=== PATIENT | female | born 1955 | race Caucasian/White ===

== ENCOUNTER → 2017-12-17 08:37 | Outpatient (CLI) | payer BC, SELFPAY ==
[2017-12-17 09:20] LABS: Add Manual Diff / Slide Review NO; Basophils Percent Auto 1.2 % (0-2); Hematocrit 38.5 % (36-46); Hemoglobin 13.2 g/dL (12.0-16.0); Lymphocytes Percent Auto 37.6 % (25-40); Mean Corpuscular HGB Conc 34.3 % (30-36); Mean Corpuscular Hemoglobin 29.9 PG (26-34); Mean Corpuscular Volume 87.3 fL (80-100); Monocytes Percent Auto 7.2 % (3-14); Neutrophils Absolute Auto 2500 /uL (3000-5900); Platelet Count 263 X10^3/uL (150-400); Red Blood Cell Count 4.41 X10^6/uL (4.0-5.2); Red Cell Distribution Width 13.5 % (11.6-14.8); White Blood Cell Count 4.8 X10^3/uL (4.5-11.0)
[2017-12-17 09:48] LABS: Alanine Aminotransferase 34 IU/L (9-52); Albumin 4.3 g/dL (3.5-5.0); Albumin Globulin Ratio 1.5 (1.0-2.8); Alkaline Phosphatase 68 U/L (38-126); Aspartate Aminotransferase 26 IU/L (14-36); Bilirubin Total 0.6 mg/dL (0.2-1.3); Blood Urea Nitrogen 16 mg/dL (7-17); Calcium 9.2 mg/dL (8.4-10.2); Carbon Dioxide 27 mmol/L (22-32); Chloride 102 mmol/L (98-107); Cholesterol 179 mg/dL (140-199); Estimated Glomerular Filt Rate > 60.0 mL/min (>60); Globulin 2.9 g/dL (1.7-4.1); Glucose 87 mg/dL (80-110); HDL Cholesterol 53 mg/dL (40-60); HEMOLYSIS 26 (0-50); LDL Cholesterol Calculated 102 mg/dL (<100); Potassium 4.3 mmol/L (3.4-5.1); Sodium 140 mmol/L (137-145); Total Protein 7.2 g/dL (6.3-8.2); Triglycerides 118 mg/dL (35-150)
[2017-12-17 10:11] LABS: Hemoglobin A1C% w Est Avg Glu 5.4 % (4.0-6.0)
[2017-12-17 10:16] LABS: TSH w/ Reflex to FT4 2.04 uIU/mL (0.47-4.68)
== END ==
PROVIDERS: Family Provider Family Medicine; PCP Family Medicine; Visit Provider Family Medicine
DX: E66.9 Obesity, unspecified (principal); E03.9 Hypothyroidism, unspecified; E78.5 Hyperlipidemia, unspecified
CPT/HCPCS: 36415; 80053; 80061; 83036; 84443; 85025

== ENCOUNTER → 2020-10-18 10:20 | Outpatient (CLI) | payer OTHER, SELFPAY ==
[2020-10-18 10:57] LABS: Hematocrit 41.1 % (36-46); Hemoglobin 13.8 g/dL (12.0-16.0); Mean Corpuscular HGB Conc 33.5 % (30-36); Mean Corpuscular Hemoglobin 28.8 PG (26-34); Mean Corpuscular Volume 86.2 fL (80-100); Platelet Count 273 X10^3/uL (150-400); Red Blood Cell Count 4.77 X10^6/uL (4.0-5.2); Red Cell Distribution Width 13.5 % (11.6-14.8); White Blood Cell Count 5.1 X10^3/uL (4.5-11.0)
[2020-10-18 11:14] LABS: Alanine Aminotransferase 24 IU/L (<35); Albumin 4.2 g/dL (3.5-5.0); Albumin Globulin Ratio 1.5 (1.0-2.8); Alkaline Phosphatase 86 U/L (38-126); Aspartate Aminotransferase 30 IU/L (14-36); BUN Creatinine Ratio 8.6 (6-22); Bilirubin Total 0.4 mg/dL (0.2-1.3); Blood Urea Nitrogen 8 mg/dL (7-17); Calcium 9.5 mg/dL (8.4-10.2); Carbon Dioxide 28 mmol/L (22-32); Chloride 106 mmol/L (98-107); Cholesterol 192 mg/dL (140-199); Estimated Glomerular Filt Rate > 60.0 mL/min (>60); Globulin 2.8 g/dL (1.7-4.1); Glucose 96 mg/dL (80-110); HDL Cholesterol 63 mg/dL (40-60); HEMOLYSIS < 15 (0-50); LDL Cholesterol Calculated 107 mg/dL (<100); Potassium 4.1 mmol/L (3.4-5.1); Sodium 140 mmol/L (137-145); Triglycerides 110 mg/dL (35-150)
[2020-10-18 11:22] LABS: NT-proBNP (BNP-Adult 18+) 91 pg/mL (<125)
[2020-10-18 11:40] LABS: TSH w/ Reflex to FT4 1.58 uIU/mL (0.47-4.68)
== END ==
PROVIDERS: PCP Registered Nurse Diabetes Educator; Referring Provider Registered Nurse Diabetes Educator; Visit Provider Registered Nurse Diabetes Educator
DX: E78.5 Hyperlipidemia, unspecified (principal); R06.00 Dyspnea, unspecified; I10 Essential (primary) hypertension; R06.83 Snoring
CPT/HCPCS: 36415; 80053; 80061; 83880; 84443; 85027

== ENCOUNTER → 2020-11-08 08:45 | Outpatient (CLI) | payer OTHER, MEDICARE, SELFPAY ==
--- NOTE | 2020-11-08 08:47 | DI.RAD.S_ITS ---
PROCEDURE: XR CHEST 2V INDICATIONS: dyspnea on exertion TECHNIQUE: 2 views of the chest were acquired. COMPARISON: [facility], CHEST 2 VIEW, 12/11/2009, 11:46. [facility], CHEST 2 VIEW, 05/03/2015, 10:14. FINDINGS: Surgical changes and devices: None. Lungs and pleura: An incomplete inspiratory result is noted, causing a crowded appearance to the lung markings. No focal infiltrates are seen. No pneumothorax or significant pleural effusions are seen. Mild generalized interstitial prominence can be seen. Mediastinum: Mediastinal contours are normal. Heart size is normal. Bones and chest wall: No suspicious bony abnormalities. S shaped scoliosis is seen. Age-appropriate bony degenerative changes are seen. Soft tissues appear unremarkable. IMPRESSION: Low lung volumes with generalized interstitial prominence. Differential diagnosis includes artifact from the incomplete inspiratory result and mild pulmonary edema. S shaped scoliosis noted. Dictated by: Holden Daniel M.D. on 11/08/2020 at 11:03 Approved by: Holden Daniel M.D. on 11/08/2020 at 11:04
== END ==
PROVIDERS: PCP Registered Nurse Diabetes Educator; Referring Provider Registered Nurse Diabetes Educator; Visit Provider Registered Nurse Diabetes Educator
DX: E78.5 Hyperlipidemia, unspecified (principal); R06.00 Dyspnea, unspecified; I10 Essential (primary) hypertension; R06.83 Snoring; Z12.11 Encounter for screening for malignant neoplasm of colon
CPT/HCPCS: 71046; 82274

== ENCOUNTER → 2020-11-10 09:29 | Outpatient (CLI) | payer OTHER, MEDICARE, SELFPAY ==
[2020-11-10 11:05] LABS: COVID19 -Nasal RAPID Negative (Negative)
== END ==
PROVIDERS: PCP Registered Nurse Diabetes Educator; Visit Provider Student in an Organized Health Care Education/Training Program
DX: Z01.812 Encounter for preprocedural laboratory examination (principal); Z20.822 Contact with and (suspected) exposure to COVID-19
CPT/HCPCS: 87635

== ENCOUNTER → 2020-11-11 07:54 | Outpatient (CLI) | payer OTHER, MEDICARE, SELFPAY ==
--- NOTE | 2020-11-11 08:58 | PM.TREADMILL ---
Cardiac Stress Test Report Referral & Results Date Patient Seen: 11/11/20 Time Patient Seen: 08:45 Requesting provider: Bridger Johnson Indication: Dyspnea on exertion Rest ECG: NSR Procedure Note: Today following both written and verbal informed consent the patient was exercised according to a standard Gomez protocol patient went for a total of 4 minutes 16 seconds achieving a maximum heart rate of 156 maximum systolic blood pressure of 184. This is approximately 7.0 METs. Exercise was terminated at this point because of fatigue. Patient was also given Cardiolite through a previously started Hep-Lock IV by the coil repair technician approximately 1 minute prior to the cessation of exercise. Normal hemodynamic response to exercise. Presenting symptom of shortness of breath reproduced within the 1st [address] Mild [address] depressions in inferior leads that resolved rapidly with rest. Markedly decreased exercise capacity (FA I +35% on active scale). No change in rhythm. Impression: Intermediate probability for ischemia. Perfusion imaging pending. Please note: Actual ECG tracings can be found in the PACS system.
--- NOTE | 2020-11-12 17:37 | DI.NM.S_ITS ---
DATE OF SERVICE: 11/11/2020 PROCEDURE: Exercise perfusion study. INDICATIONS: Dyspnea on exertion, underlying hypertension, hyperlipidemia, hypothyroidism. RADIOPHARMACEUTICAL: 26.9 millicurie technetium-99m Myoview IV was injected at stress and 26.5 millicurie technetium-99m Myoview IV was injected at rest. CARDIAC STRESS: The patient underwent exercise perfusion study under the supervision of an attending staff. The patient walked on Gomez protocol for 4 minutes and 16 seconds, achieved a peak heart rate of 156, which was 101 percent of target heart rate and peak blood pressure of 184/100 mmHg. Resting blood pressure 136/80 mmHg. The patient has significant shortness of breath and fatigue during exercise. Achieved 7 METs of workload. Functional aerobic impairment positive 35 percent. Baseline EKG revealed sinus rhythm with asymmetrical T-wave inversion and some ST flattening in inferior leads and lead V3 to V6. During stress, there were no new convincing ischemic changes or significant arrhythmias seen. RAW DATA: The breast shadow was seen. GATED STUDY: Stress LV ejection fraction 77 percent without any obvious wall motion abnormalities. Resting end-diastolic volume 79 mL. TID ratio 0.85, which is within normal limits. Lung/heart ratio 0.34, which is within normal limits. MYOCARDIAL PERFUSION: Stress supine and resting supine images, as well as stress prone images were compared to each other. Resting supine images revealed small size, mildly decreased perfusion of mid to distal anterior wall. However, the stress supine and stress prone images revealed normal myocardial perfusion. CONCLUSION: I will call this study a normal myocardial perfusion study, as stress supine and stress prone images revealed normal myocardial perfusion. Poor functional tolerance. SARAH positive 35 percent. The patient has significant shortness of breath during exercise. Left ventricular function is preserved. No transient ischemic dilatation. No convincing ischemic changes during stress or significant arrhythmias. Consider 2D echo to make sure there is no significant diastolic dysfunction, as well as pulmonary workup to rule out pulmonary etiology of shortness of breath. There was enhanced chronotropic response. Leydi Be - PAZ/lucero/ramu doc#: [id number]/job#: [id number] dd: 11/12/2020 16:42:00 dt: 11/12/2020 17:11:00 DICTATING MD/COPIES TO: Raymond Martinez MD COPIES MNE: YANICK;
== END ==
PROVIDERS: PCP Registered Nurse Diabetes Educator; Referring Provider Registered Nurse Diabetes Educator; Visit Provider Registered Nurse Diabetes Educator
DX: R06.00 Dyspnea, unspecified (principal); I10 Essential (primary) hypertension; E78.5 Hyperlipidemia, unspecified
CPT/HCPCS: 78452; 93016; 93017; 93018; A9502

== ENCOUNTER → 2020-11-15 09:28 | Outpatient (CLI) | payer OTHER, MEDICARE, SELFPAY ==
--- NOTE | 2020-11-15 09:30 | DI.RAD.S_ITS ---
PROCEDURE: XR CHEST 2V INDICATIONS: r/o mild pulmonary edema vs incomplete inspiratory result TECHNIQUE: 2 views of the chest were acquired. COMPARISON: [facility], JANELL, CHEST 2 VIEW, 05/03/2015, 10:14. [facility], JANELL, XR CHEST 2V, 11/08/2020, 8:45. FINDINGS: Surgical changes and devices: None. Lungs and pleura: Lungs are clear. No pleural effusions or pneumothorax. Mediastinum: Mediastinal contours are normal. Heart size is normal. Bones and chest wall: S shaped scoliosis of the thoracolumbar spine. No suspicious bony abnormalities. Soft tissues appear unremarkable. IMPRESSION: No acute cardiopulmonary disease process. Dictated by: Ariana Castillo MD, PhD on 11/15/2020 at 12:12 Approved by: Ariana Castillo MD, PhD on 11/15/2020 at 12:13
== END ==
PROVIDERS: PCP Registered Nurse Diabetes Educator; Referring Provider Registered Nurse Diabetes Educator; Visit Provider Registered Nurse Diabetes Educator
DX: M25.579 Pain in unspecified ankle and joints of unspecified foot (principal); R06.83 Snoring; R06.00 Dyspnea, unspecified; I10 Essential (primary) hypertension
CPT/HCPCS: 71046

== ENCOUNTER → 2021-01-30 17:05 | Outpatient (CLI) | payer MEDICARE, SELFPAY ==
--- NOTE | 2021-01-30 17:09 | DI.RAD.S_ITS ---
PROCEDURE: XR CHEST 2V INDICATIONS: Concern for pneumonia TECHNIQUE: 2 views of the chest were acquired. COMPARISON: [facility], CR, XR CHEST 2V, 11/15/2020, 9:30. FINDINGS: Surgical changes and devices: None. Lungs and pleura: Lungs are clear. No pleural effusions or pneumothorax. Mediastinum: Mediastinal contours are normal. Heart size is normal. Bones and chest wall: No suspicious bony abnormalities. Soft tissues appear unremarkable. IMPRESSION: No acute finding in the chest. Dictated by: Thanh Eaton M.D. on 01/30/2021 at 17:25 Approved by: Thanh Eaton M.D. on 01/30/2021 at 17:25
== END ==
PROVIDERS: PCP Registered Nurse Diabetes Educator; Referring Provider Physician Assistant; Visit Provider Physician Assistant
DX: R05 Cough (principal); Z20.822 Contact with and (suspected) exposure to COVID-19
CPT/HCPCS: 71046; 87635

== ENCOUNTER → 2021-01-30 17:56 | Outpatient (CLI) | payer MEDICARE, SELFPAY ==
[2021-01-30 18:21] LABS: COVID19 -Nasal RAPID Negative (Negative)
== END ==
PROVIDERS: PCP Registered Nurse Diabetes Educator; Visit Provider Physician Assistant
DX: Z20.822 Contact with and (suspected) exposure to COVID-19 (principal)
CPT/HCPCS: 87635

== ENCOUNTER → 2021-03-07 09:31 | Outpatient (CLI) | payer MEDICARE, SELFPAY ==
[2021-03-08 11:07] LABS: SARS CoV19 IgG Negative (Negative)
== END ==
PROVIDERS: PCP Registered Nurse Diabetes Educator; Referring Provider Registered Nurse Diabetes Educator; Visit Provider Registered Nurse Diabetes Educator
DX: Z20.822 Contact with and (suspected) exposure to COVID-19 (principal)
CPT/HCPCS: 36415; 86769

== ENCOUNTER → 2021-04-10 11:21 | Outpatient (CLI) | payer MEDICARE, SELFPAY ==
[2021-04-12 11:15] LABS: COVID19 Sendout Positive (Not Detect)
== END ==
PROVIDERS: PCP Registered Nurse Diabetes Educator; Visit Provider Nurse Practitioner
DX: U07.1 COVID-19 (principal); Z20.822 Contact with and (suspected) exposure to COVID-19
CPT/HCPCS: 87635

== ENCOUNTER 2021-04-13 15:14 | Observation (INO) | payer MEDICARE, SELFPAY ==
[2021-04-13] VITALS (10 sets, daily range): BP systolic 134–159; BP diastolic 69–91; PULSE 71–91; RESP 16–32; TEMP 36.3–36.6; O2SAT 88–96; BMI 34.9
--- NOTE | 2021-04-13 15:23 | DI.CT.S_ITS ---
PROCEDURE: CT HEAD/BRAIN WO CON INDICATIONS: stroke sx, word searching TECHNIQUE: Noncontrast 4.5 mm thick angled axial sections acquired from the foramen magnum to the vertex, with coronal and sagittal reformats. For radiation dose reduction, the following was used: automated exposure control, adjustment of mA and/or kV according to patient size. COMPARISON: [facility], , BRAIN WITHOUT CONTRAST, 01/23/2007, 6:58. FINDINGS: Image quality: Excellent. CSF spaces: Basal cisterns are patent. No extra-axial fluid collections. The ventricles are symmetric in size and shape. Brain: No intracranial bleeds or masses. There is cerebral volume loss for age, with resultant ventricular and sulcal prominence. There are periventricular and deep white matter chronic small vessel ischemic changes. There is intracranial internal carotid artery atherosclerosis. Skull and face: Calvarium and visualized facial bones appear intact, without suspicious lesions. Sinuses: Visualized sinuses and mastoids are clear. IMPRESSION: 1. No acute intracranial abnormalities. 2. Cerebral volume loss and chronic microvascular ischemic changes. Dictated by: Sonja Alexis M.D. on 04/13/2021 at 15:47 Approved by: Sonja Alexis M.D. on 04/13/2021 at 15:49
--- NOTE | 2021-04-13 15:27 | ED_ITS ---
HPI - Neuro Symptoms/Deficit General Chief Complaint: Neuro Symptoms/Deficit Stated Complaint: Possible stroke, Covid+ Time Seen by Provider: 04/13/21 15:20 History of Present Illness HPI Narrative: 65-year-old female nonsmoker with history of hypertension, hyperlipidemia, reported history of paroxysmal AFib not on anticoagulation and hypothyroidism is currently COVID positive and presents with a chief complaint of an episode of difficulty finding words 20 minutes prior to her arrival. Her symptoms had resolved prior to her coming in. She denies other trouble such as blurred vision dizziness, lightheadedness. She denies any history of recent injury. She has no runny nose, sore throat or cough. She has had no chest pain, palpitations or shortness of breath. She has taken directly to CT for evaluation given concern for stroke On Anticoagulants: No Related Data Home Medications Medication Instructions Recorded Confirmed multivitamin (Multiple Vitamins) 1 tab PO QDAY #0 03/18/17 01/30/21 melatonin 5 mg capsule mg PO 10/08/20 01/30/21 Previous Rx's Medication Instructions Recorded levothyroxine 25 mcg tablet 25 mcg PO QDAY #90 tab 11/05/20 lisinopril 10 mg tablet 10 mg PO QDAY #90 tab 11/05/20 meloxicam 7.5 mg tablet (Mobic) 7.5 mg PO BIDCC #180 tab 11/05/20 omeprazole 20 mg tablet,delayed 20 mg PO BID #180 tab 11/05/20 release pravastatin 20 mg tablet 20 mg PO HS #90 tab 11/05/20 venlafaxine 75 mg capsule,extended 75 mg PO DAILY #90 cap 11/05/20 release 24 hr azelastine 137 mcg (0.1 %) nasal 1 spray INTRANASAL BID #30 ml 01/30/21 spray aerosol benzonatate 100 mg capsule 100 mg PO BID-TID PRN #14 cap 01/30/21 Allergies Allergy/AdvReac Type Severity Reaction Status Date / Time codeine [CODEINE] Allergy Mild Verified 01/30/21 17:53 meperidine [MEPERIDINE] Allergy Mild Verified 01/30/21 17:53 morphine [MORPHINE] Allergy Mild Verified 01/30/21 17:53 simvastatin [SIMVASTATIN] Allergy Mild Verified 01/30/21 17:53 Review of Systems Review of Systems Narrative: GENERAL: Denies chills, fatigue, malaise, fever, sweats. HEENT: Denies sinus pain, ear pain, sore throat, difficulty swallowing, dizziness. RESPIRATORY: Denies dyspnea, cough, wheezing, hemoptysis, sputum. CARDIOVASCULAR: Denies chest pain, palpitations, orthopnea, edema, GASTROINTESTINAL: Denies nausea, vomiting, abdominal pain, diarrhea, constipation, melena. : Denies dysuria, frequency, incontinence, hematuria, urinary retention. MUSCULOSKELETAL: denies weakness, joint pain, or bony pain SKIN: Denies rash, skin lesions, or other NEUROLOGIC: See HPI PSYCHIATRIC: No concerning psychosocial issues. 12 point review of systems is negative except for those stated above Hematologic/Lymphatic On Anticoagulants: No Patient History Medical History Allergies Anxiety Carpal tunnel syndrome (~2014) Cervical spine disease Depression (~1972) Dyslipidemia Endometriosis (~1983) Foot pain (~1999) Fractures (~1966) GERD (gastroesophageal reflux disease) Hayfever Hiatal hernia History of heavy periods Hyperlipidemia Hypertension Hypothyroidism Mumps (~1959) Scoliosis (~1967) Shoulder pain (~1999) Wears glasses Surgical History Anesthesia History of spinal fusion (~1967) History of surgery on arm (~1965) History of tonsillectomy (~1961) S/P total abdominal hysterectomy and bilateral salpingo-oophorectomy (~1999) Status post bunionectomy (~1999) Family History Brother Age: 68 Oquendo's esophagus CAD, multiple vessel PTSD (post-traumatic stress disorder) History of heart disease Hypertension Hyperlipidemia Mother CAD (coronary artery disease) Lung cancer Sister Oquendo's esophagus CAD, multiple vessel Sister Age: 66 Stroke History of knee replacement Social History marital status: lives independently: Yes caregiver/support person: No pets and animals: Yes education level: college occupational status: employed Smoking Status: Never smoker alcohol intake: current substance use type: does not use Smoking Status: Never smoker Exam Narrative Exam Narrative: GENERAL: [65 year old patient appears stated age. Well-developed patient, in mild distress. HEAD: Atraumatic. Normocephalic. EYES: Pupils equal round and reactive. Extraocular motions intact. No scleral icterus. No injection or drainage. ENT: Nose without bleeding, purulent drainage. Throat without erythema, tonsillar hypertrophy or exudate. Airway patent. NECK: Trachea midline. Non tender CARDIOVASCULAR: Regular rate and rhythm without murmurs, gallops, or rubs. RESPIRATORY: Clear to auscultation. Breath sounds equal bilaterally. No wheezes, rales, or rhonchi. GASTROINTESTINAL: Abdomen soft, non-tender, nondistended. EXTREMITIES: No edema or joint tenderness. BACK: Nontender without deformity or crepitance. No flank tenderness. NEURO: AOx3. SKIN: No rash or erythema of visible areas Initial Vital Signs Initial Vital Signs: Vital Signs Temperature 97.8 F 04/13/21 15:24 Pulse Rate 91 H 04/13/21 15:24 Respiratory Rate 16 04/13/21 15:24 Blood Pressure 159/75 H 04/13/21 15:24 Pulse Oximetry 95 04/13/21 15:24 Course Orders Ordered: ED Orders 04/13/21 15:20 Complete Blood Count AUTO DIFF Stat Comprehensive Metabolic Panel Stat 04/13/21 15:23 CT head/brain wo con Stat 04/13/21 15:27 EKG-12 Lead Stat 04/13/21 16:45 COVID19 - ADMIT (PRESSURE WELDER swab/PCR) Stat Sodium Chloride (Normal Saline 0.9%) 1,000 mls @ 150 mls/hr IV CONT AQUILES Last Admin: 04/13/21 16:25 Dose: 150 mls/hr Documented by: DAKOTA Discontinued Medications Aspirin (Aspirin 81 Mg Chew Tab) 324 mg PO NOW ONE Stop: 04/13/21 16:39 Last Admin: 04/13/21 16:41 Dose: 324 mg Documented by: DAKOTA Vital Signs Vital signs: Vital Signs - 8 hr 04/13/21 15:24 04/13/21 16:01 04/13/21 16:30 Temperature 97.8 F Pulse Rate 91 H 87 82 Respiratory Rate 16 32 H Blood Pressure 159/75 H 134/79 142/88 H Pulse Oximetry 95 88 L 94 MDM - Neuro Symptoms/Deficit Lab Data Result diagrams: 04/13/21 15:20 04/13/21 15:20 Labs: Lab Results 04/13/21 04/13/21 Range/Units 15:20 15:20 WBC 2.8 L (4.5-11.0) X10^3/uL RBC 5.08 (4.0-5.2) X10^6/uL Hgb 14.3 (12.0-16.0) g/dL Hct 42.9 (36-46) % MCV 84.6 (80-100) fL MCH 28.1 (26-34) PG MCHC 33.2 (30-36) % RDW 13.9 (11.6-14.8) % Plt Count 198 (150-400) X10^3/uL Neut % (Auto) 51.7 (50-75) % Lymph % (Auto) 37.7 (25-40) % Hudspeth % (Auto) 9.7 (3-14) % Eos % (Auto) 0.2 L (2-4) % Baso % (Auto) 0.7 (0-2) % Neut # (Auto) 1500 (7170-7856) /uL Lymph # (Auto) 1100 (1588-8656) /uL Hudspeth # (Auto) 300 (0-900) /uL Eos # (Auto) 0 (0-450) /uL Baso # (Auto) 0 (0-100) /uL Sodium 136 L (137-145) mmol/L Potassium 4.0 (3.4-5.1) mmol/L Chloride 100 (98-107) mmol/L Carbon Dioxide 28 (22-32) mmol/L BUN 9 (7-17) mg/dL Creatinine 0.91 (0.52-1.04) mg/dL Estimated GFR > 60.0 (>60) mL/min BUN/Creatinine Ratio 9.9 (6-22) Glucose 118 H (80-110) mg/dL Calcium 9.0 (8.4-10.2) mg/dL Total Bilirubin 0.2 (0.2-1.3) mg/dL AST 40 H (14-36) IU/L ALT 42 H (<35) IU/L Alkaline Phosphatase 126 (38-126) U/L Total Protein 7.3 (6.3-8.2) g/dL Albumin 4.4 (3.5-5.0) g/dL Globulin 2.9 (1.7-4.1) g/dL Albumin/Globulin Ratio 1.5 (1.0-2.8) Point of Care Testing Glucose POC [address] scan - head: Radiologist's Impression: Leydi Be??65??F??1955 ? Allergy/Adv: codeine, meperidine, morphine, simvastatin (More??) Close Head CT (Signed) Giuliana Alexis - 04/13/21 Chest X-Ray (Signed) EatonThanh pino - 01/30/21 Chest X-Ray (Signed) JonathanAriana - 11/15/20 Radiology Report (Cancelled) Raymond Martinez - 11/12/20 Myocardial Perfusion Scan Nuc Med (Signed) Raymond Martinez - 11/12/20 Chest X-Ray (Signed) Holden Daniel - 11/08/20 Radiology - Historical 04/16/16 Launch?[place] [address] CT Scan Report Signed Patient: Leydi Be MR#: [id number] : 1955 Acct:[id number] Age/Sex: 65 / F Date of Service: 04/13/21 Loc: ED Accession Number: [id number] ?? Procedure: CT head/brain wo con Ordering Provider: Ayush Rodriguez D.O. PROCEDURE:? CT HEAD/BRAIN WO CON ? INDICATIONS:? stroke sx, word searching ? TECHNIQUE:? Noncontrast 4.5 mm thick angled axial sections acquired from the foramen magnum to the vertex, with coronal and sagittal reformats.? For radiation dose reduction, the following was used:? automated exposure control, adjustment of mA and/or kV according to patient size.? ? COMPARISON:? [facility], MR, BRAIN WITHOUT CONTRAST, 01/23/2007, 6:58. ? FINDINGS:? Image quality:? Excellent.? ? CSF spaces:? Basal cisterns are patent.? No extra-axial fluid collections.? The ventricles are symmetric in size and shape.? ? Brain:? No intracranial bleeds or masses.? There is cerebral volume loss for age, with resultant ventricular and sulcal prominence.? There are periventricular and deep white matter chronic small vessel ischemic changes.? There is intracranial internal carotid artery atherosclerosis.? ? Skull and face:? Calvarium and visualized facial bones appear intact, without suspicious lesions.? ? Sinuses:? Visualized sinuses and mastoids are clear.? ? IMPRESSION:? ? 1. No acute intracranial abnormalities. ? 2. Cerebral volume loss and chronic microvascular ischemic changes. ? ? ? Dictated by: Sonja Alexis M.D. on 04/13/2021 at 15:47 ? ? Approved by: Sonja Alexis M.D. on 04/13/2021 at 15:49 ? Discharge Plan Departure Patient Disposition: Admitted as Observation Clinical Impression: Transient cerebral ischemia, COVID Admit Date/Time: 04/13/21 17:05 Admit Provider: Ragini Quesada
[2021-04-13 15:40] LABS: Add Manual Diff / Slide Review NO; Basophils Absolute Auto 0 /uL (0-100); Basophils Percent Auto 0.7 % (0-2); Eosinophils Absolute Auto 0 /uL (0-450); Eosinophils Percent Auto 0.2 % (2-4); Hematocrit 42.9 % (36-46); Hemoglobin 14.3 g/dL (12.0-16.0); Lymphocytes Absolute Auto 1100 /uL (1100-4500); Lymphocytes Percent Auto 37.7 % (25-40); Mean Corpuscular HGB Conc 33.2 % (30-36); Mean Corpuscular Hemoglobin 28.1 PG (26-34); Mean Corpuscular Volume 84.6 fL (80-100); Monocytes Absolute Auto 300 /uL (0-900); Monocytes Percent Auto 9.7 % (3-14); Neutrophils Absolute Auto 1500 /uL (1500-7000); Neutrophils Percent Auto 51.7 % (50-75); Platelet Count 198 X10^3/uL (150-400); Red Blood Cell Count 5.08 X10^6/uL (4.0-5.2); Red Cell Distribution Width 13.9 % (11.6-14.8); White Blood Cell Count 2.8 X10^3/uL (4.5-11.0)
[2021-04-13 15:53] LABS: Alanine Aminotransferase 42 IU/L (<35); Albumin 4.4 g/dL (3.5-5.0); Albumin Globulin Ratio 1.5 (1.0-2.8); Alkaline Phosphatase 126 U/L (38-126); Aspartate Aminotransferase 40 IU/L (14-36); BUN Creatinine Ratio 9.9 (6-22); Bilirubin Total 0.2 mg/dL (0.2-1.3); Blood Urea Nitrogen 9 mg/dL (7-17); Carbon Dioxide 28 mmol/L (22-32); Chloride 100 mmol/L (98-107); Estimated Glomerular Filt Rate > 60.0 mL/min (>60); Globulin 2.9 g/dL (1.7-4.1); Glucose 118 mg/dL (80-110); HEMOLYSIS < 15 (0-50); Sodium 136 mmol/L (137-145); Total Protein 7.3 g/dL (6.3-8.2)
[2021-04-13] MEDS: SODIUM CHLORIDE 0.9% 1,000 ML 150 ML IV (16:25)
[2021-04-13] MEDS: ASPIRIN 81 MG CHEW TAB 324 MG PO (16:41)
[2021-04-13 17:36] LABS: COVID19 - ADMIT (NP swab/PCR) POSITIVE (Negative)
--- NOTE | 2021-04-13 20:10 | DI.MRI.S_ITS ---
PROCEDURE: MR STROKE Pre- and post-contrast brain MRI, non-contrast brain MR angiogram, pre- and postcontrast neck MR angiogram INDICATIONS: neuro defcit R/O STROKE TECHNIQUE: Brain: Noncontrast axial T1 spin echo, axial T2 fast spin echo, sagittal and axial FLAIR, coronal T2 fast spin echo, axial gradient echo, axial diffusion and ADC through the brain. After the administration of contrast, axial 3D VIBE of the cranial vasculature and brain. Brain MRA: Non-contrast 3-D time of flight MR angiogram, with multiple sxazpxy-qjjyihvat-txiomytahf (MIP) reformats performed. Neck MRA: Axial and sagittal TruFISP through the neck. Coronal dynamic MR angiogram during administration of contrast in the arterial and venous phases, with 3-dimenstional xgsnssv-oqcmjptdw-axyeqvskfh (MIP) reformats constructed from subtraction images. COMPARISON: [facility], CT, CT HEAD/BRAIN WO CON, 04/13/2021, 15:29. FINDINGS: Image quality: Partially degraded by motion artifact. BRAIN: CSF spaces: Ventricles are normal in size and shape. Basal cisterns are patent. No extra-axial fluid collections. Brain: No intracranial bleeds or mass effects. Mild diffuse cerebral volume loss. Mild degree of patchy high FLAIR signal within the periventricular and subcortical white matter, as well as the odette. Emanuel-white matter interface is normal. Diffusion weighted images show no acute ischemic insults. Brainstem appears normal. Normal intravascular flow voids are present. No abnormal intracranial enhancement. Skull and face: Calvarial marrow signal is normal. Orbits appear normal. Sinuses: Mild mucosal thickening in the bilateral ethmoid sinuses. Sinuses and mastoids are otherwise clear. BRAIN MR ANGIOGRAM: Anterior circulation: Intracranial internal carotid arteries are normal in size and enhancement. The flow within the paired anterior cerebral arteries is normal and symmetric. The flow within the middle cerebral arteries is normal and symmetric. The anterior communicating artery is seen. No stenoses, occlusions, or aneurysms. Posterior circulation: The visualized portions of the vertebral arteries demonstrate normal caliber, and join to form a normal appearing basilar artery. Near origin of the right posterior cerebral artery. The flow within the posterior cerebral arteries is normal and symmetric. No stenoses, occlusions, or aneurysms. NECK MR ANGIOGRAM: Thoracic aortic arch is grossly patent as visualized. There is a common origin of the innominate and left common carotid arteries, which is grossly patent. Innominate artery is patent. Right subclavian artery is grossly patent. Right vertebral artery is not well seen at its origin, but is otherwise patent. Right common carotid artery is not well seen proximally, or in its midportion, but is otherwise patent. Right internal carotid artery is patent. Left common carotid artery is not well seen proximally, but is grossly patent. Left internal carotid artery is patent. Left subclavian artery is patent. Left vertebral artery is not well seen proximally, but is otherwise patent. IMPRESSION: BRAIN MRI: 1. No acute process. No recent infarct. 2. Volume loss and small vessel ischemic disease. BRAIN MR ANGIOGRAM: Grossly unremarkable MR angiography of the head. NECK MR ANGIOGRAM: 1. Limited evaluation secondary to motion artifact. 2. No internal carotid artery stenosis bilaterally. 3. Suboptimally visualized great vessels as well as proximal vertebral arteries which are otherwise patent. Dictated by: Elton Pope M.D. on 04/14/2021 at 11:39 Approved by: Elton Pope M.D. on 04/14/2021 at 11:46
[2021-04-13] MEDS: HEPARIN 5,000 UNIT/ML VIAL 5000 UNIT SUBCUT (22:16)
[2021-04-13] MEDS: ONDANSETRON 4 MG/2 ML INJ IV (22:16)
[2021-04-14 00:15] VITALS: O2SAT 97
[2021-04-14] MEDS: MELATONIN 3 MG TABLET 6 MG PO (00:15)
[2021-04-14] MEDS: PRAVASTATIN 20 MG TABLET PO (00:15)
--- NOTE | 2021-04-14 00:30 | P.HP_ITS ---
History of Present Illness History of Present Illness Date Patient Seen: 04/13/21 Time Patient Seen: 20:23 Chief complaint: Possible stroke, Covid+ Narrative: Leydi Be is a 65-year-old female nonsmoker with history of hypertension, hyperlipidemia, depression, GERD, paroxysmal AFib not on anticoagulation and hypothyroidism is currently COVID positive, unvaccinated who presented with a chief complaint of an episode of difficulty finding words, right hand numbness & tingling x 20 minutes, all of which resolved prior to arrival in the ED, and have not returned. Upon admit patient denies blurred vision dizziness, lightheadedness, numbness, tingling, weakness, difficulty in ambulation, difficulty swallowing, chest pain, palpitations, shortness of breath, recent illness, injury or trauma. Patient denies any changes to her medications. Patient reports that she was exposed to COVID while on holiday in [place] with her brother and family approximately 10-12 days ago. She reports that she has a cough but that her shortness of breath is not worsened, she denies fever but does report having severe headaches prior to hospitalization with body aches and chills. Patient currently denies any symptoms and does not require oxygenation. Patient denies abdominal pain, nausea, vomiting, diarrhea, dysuria, hematuria, melena or hematemesis. Upon admit patient's vitals signs are stable BP 144/69, HR 74, RR 27, O2 saturation 93% on room air. Admitting NIH:0, Patient's CBC and CMP WNL patient has mild elevation in AST 40 ALT 42. Patient's head CT is negative for any intracranial acute processes. Patient admitted for observation for neurological deficit, TIA rule out stroke, and positive COVID-19 infection without acute respiratory failure. Patient History Medical History Allergies Anxiety Carpal tunnel syndrome (~2014) Cervical spine disease Depression (~1972) Dyslipidemia Endometriosis (~1983) Foot pain (~1999) Fractures (~1966) GERD (gastroesophageal reflux disease) Hayfever Hiatal hernia History of heavy periods Hyperlipidemia Hypertension Hypothyroidism Mumps (~1959) Scoliosis (~1967) Shoulder pain (~1999) Wears glasses Surgical History Anesthesia History of spinal fusion (~1967) History of surgery on arm (~1965) History of tonsillectomy (~1961) S/P total abdominal hysterectomy and bilateral salpingo-oophorectomy (~1999) Status post bunionectomy (~1999) Family & Social History Family History Brother Age: 68 Oquendo's esophagus CAD, multiple vessel PTSD (post-traumatic stress disorder) History of heart disease Hypertension Hyperlipidemia Mother CAD (coronary artery disease) Lung cancer Sister Oquendo's esophagus CAD, multiple vessel Sister Age: 66 Stroke History of knee replacement Social History: household members spouse Prior Living Arrangements House lives independently Yes caregiver/support person No Safety & Behavioral: Feels Safe in Current Yes Environment Been Physically Hurt or No Threatened By a Person Suicidal Ideation Description None Suicide Plan Description No Plan Tobacco & Substance use: Smoking Status Never smoker alcohol intake current Substance Use Type does not use Meds Home Medications and Allergies Home Medications Medication Instructions Recorded Confirmed Type multivitamin (Multiple Vitamins) 1 tab PO QDAY #0 03/18/17 04/13/21 History melatonin 5 mg capsule 5 mg PO PRN PRN 10/08/20 04/13/21 History levothyroxine 25 mcg tablet 25 mcg PO QDAY #90 tab 11/05/20 04/13/21 Rx lisinopril 10 mg tablet 10 mg PO QDAY #90 tab 11/05/20 04/13/21 Rx meloxicam 7.5 mg tablet (Mobic) 7.5 mg PO BIDCC #180 tab 11/05/20 04/13/21 Rx omeprazole 20 mg tablet,delayed 20 mg PO BID #180 tab 11/05/20 04/13/21 Rx release pravastatin 20 mg tablet 20 mg PO HS #90 tab 11/05/20 04/13/21 Rx venlafaxine 75 mg capsule,extended 75 mg PO DAILY #90 cap 11/05/20 04/13/21 Rx release 24 hr azelastine 137 mcg (0.1 %) nasal 1 spray INTRANASAL BID #30 ml 01/30/21 04/13/21 Rx spray aerosol benzonatate 100 mg capsule 100 mg PO BID-TID PRN #14 cap 01/30/21 04/13/21 Rx Allergies Allergy/AdvReac Type Severity Reaction Status Date / Time codeine [CODEINE] Allergy Mild Verified 01/30/21 17:53 meperidine [MEPERIDINE] Allergy Mild Verified 01/30/21 17:53 morphine [MORPHINE] Allergy Mild Verified 01/30/21 17:53 simvastatin [SIMVASTATIN] Allergy Mild Verified 01/30/21 17:53 Review of Systems Review of Systems Narrative: All 12 point systems reviewed with the patient and are negative except otherwise documented. Exam Vital Signs (past 8 hours): - 04/13/21 17:00 04/13/21 17:30 04/13/21 18:00 Temperature Pulse Rate 73 76 73 Respiratory Rate 19 26 H 21 Blood Pressure 159/77 H 148/88 H Pulse Oximetry 94 94 94 04/13/21 18:01 04/13/21 18:30 04/13/21 20:15 Temperature Pulse Rate 71 74 Respiratory Rate 21 27 H Blood Pressure 155/76 H 144/69 H Pulse Oximetry 94 93 96 04/13/21 22:00 Temperature 97.3 F L Pulse Rate 73 Respiratory Rate 20 Blood Pressure 159/91 H Pulse Oximetry 96 Oxygen Delivery Method Room Air Oxygen Flow Rate 0 Narrative Exam Narrative: General: Patient is a well-developed, well-nourished female in no distress at this time. HEENT: Normocephalic, atraumatic, extraocular muscles intact, oral pharynx is clear and mucous membranes are moist. Neck is supple and symmetric, trachea is midline, no adenopathy, no thyroid enlargement, nontender, no masses palpated. Negative for JVD Chest: Normal AP diameter and contour without kyphoscoliosis, no nasal flaring, retractions, or tachypneic labored Lungs: Auscultation of all lung yu are clear without adventitious sounds, wheezes, rhonchi, or rales. Cardio: S1 & S2 with regular rate and rhythm without murmur, rubs, or gallops, no carotid bruit, no cardiac pulsations present. Abdomen: Soft nontender, negative for organomegaly, or masses. Bowel sounds are present in all 4 quadrants without guarding or rebound, no CVA tenderness. Musculoskeletal: Muscle strength and tone are equal within normal limits, no deformity, crepitus, effusions, cyanosis, clubbing or edema present. Full range of motion intact radial and pedal pulses are normal. Skin: Warm dry and intact without rashes, ulcerations or petechiae. Neuro: Alert and orientated x3, strength is +5/5 in all extremities, sensation to touch intact, no gross deficits noted of cranial nerves. Psych: Patient has a well-kept appearance, appropriate affect, mental status attitude thought context and judgment are appropriate for age. Objective Labs Result Diagrams: 04/13/21 15:20 04/13/21 15:20 Labs: Laboratory Results - last 24 hr 04/13/21 04/13/21 04/13/21 15:20 15:20 16:45 WBC 2.8 L RBC 5.08 Hgb 14.3 Hct 42.9 MCV 84.6 MCH 28.1 MCHC 33.2 RDW 13.9 Plt Count 198 Neut % (Auto) 51.7 Lymph % (Auto) 37.7 [place] % (Auto) 9.7 Eos % (Auto) 0.2 L Baso % (Auto) 0.7 Neut # (Auto) 1500 Lymph # (Auto) 1100 [place] # (Auto) 300 Eos # (Auto) 0 Baso # (Auto) 0 Sodium 136 L Potassium 4.0 Chloride 100 Carbon Dioxide 28 BUN 9 Creatinine 0.91 Estimated GFR > 60.0 BUN/Creatinine Ratio 9.9 Glucose 118 H Calcium 9.0 Total Bilirubin 0.2 AST 40 H ALT 42 H Alkaline Phosphatase 126 Total Protein 7.3 Albumin 4.4 Globulin 2.9 Albumin/Globulin Ratio 1.5 SARS-CoV-2 (PCR) Positive H Assessment & Plan Assessment & Plan narrative: Leydi Be is a 65-year-old female nonsmoker with history of hypertension, hyperlipidemia, depression, GERD, (reported) paroxysmal AFib not on anticoagulation and hypothyroidism is currently COVID positive, unvaccinated who presented with a chief complaint of an episode of difficulty finding words, right hand numbness & tingling x 20 minutes, all of which resolved prior to arrival in the ED, and have not returned. Patient admitted for observation for neurological deficit, TIA rule out stroke, and positive COVID- 19 infection without acute respiratory failure. 1. Neurological deficit(right hand numbness, weakness, tingling, word-finding difficulties), TIA, acute, in the setting of hyperlipidemia, and essential hypertension, acute on chronic, present on admission-resolved/stable NIH:0 -differential diagnosis TIA, ischemic stroke, intracranial hemorrhage, subdural hematoma, epidural hematoma, seizure, brain tumor, migraine, vertigo, hypoglycemia, [place] syndrome, multiple sclerosis, aortic dissection, COVID-19 infection. -head CT was negative for acute intracranial process -patient reports a history paroxysmal atrial fibrillation but is on no anticoagulation-no atrial fibrillation has been demonstrated on EKG/monitor- placed on tele -MRI ordered -Plavix 75 mg, ASA 81mg -Labs:Lipid panel, TSH, BNP -continue patient's pravastatin, and lisinopril 2. COVID-19 infection, acute, present on admission -patient is currently stable and asymptomatic, will continue to monitor for acute respiratory distress/viral illness and provide supportive measures -patient education provided regarding still obtaining COVID vaccination, as COVID infections have a limited time frame of immunity. 3. Hypothyroidism, acquired, acute on chronic, present on admission -TSH level ordered, continue patient's levothyroxine 25 mcg 4. Depression, chronic, present on admission Continue patient's venlafaxine 5. GERD, chronic, present on admission -continue patient's omeprazole Code status: Full Surrogate decision maker: Spouse COVID PCR: POSITIVE COVID vaccination: NONE DVT/VTE prophylaxis:Heparin and SCDs Disposition: Patient admitted under observation for neurological deficit/TIA stroke rule out, expected length of stay less than 2 midnights. I have utilized all available immediate resources to obtain, update, or review the patient's current medications. I confirmed that the patient's advanced care plan is present, Code status is documented and/or surrogate decision maker is listed in the patient's medical record. Time Spent With Patient Critical Care time: I spent a total of [] minutes of critical care time on this patient's care today; this time is exclusive of procedural time.
[2021-04-14 00:57] VITALS: BP 115/76; PULSE 84; RESP 17; TEMP 36.2; O2SAT 97
[2021-04-14] MEDS: ACETAMINOPHEN 325 MG TABLET 650 MG PO ×2 (03:23→10:33)
[2021-04-14 04:00] VITALS: BP 130/81; PULSE 84; RESP 18; TEMP 35.9; O2SAT 92
[2021-04-14] MEDS: LEVOTHYROXINE 25 MCG TABLET PO (05:57)
[2021-04-14 06:24] LABS: Alanine Aminotransferase 32 IU/L (<35); Albumin 3.7 g/dL (3.5-5.0); Albumin Globulin Ratio 1.4 (1.0-2.8); Alkaline Phosphatase 117 U/L (38-126); Aspartate Aminotransferase 32 IU/L (14-36); BUN Creatinine Ratio 7.7 (6-22); Bilirubin Total 0.2 mg/dL (0.2-1.3); Blood Urea Nitrogen 6 mg/dL (7-17); Calcium 8.7 mg/dL (8.4-10.2); Carbon Dioxide 27 mmol/L (22-32); Chloride 104 mmol/L (98-107); Cholesterol 115 mg/dL (140-199); Estimated Glomerular Filt Rate > 60.0 mL/min (>60); Globulin 2.7 g/dL (1.7-4.1); Glucose 89 mg/dL (80-110); HDL Cholesterol 40 mg/dL (40-60); HEMOLYSIS < 15 (0-50); LDL Cholesterol Calculated 48 mg/dL (<100); Potassium 3.9 mmol/L (3.4-5.1); Sodium 137 mmol/L (137-145); Total Protein 6.4 g/dL (6.3-8.2); Triglycerides 133 mg/dL (35-150)
[2021-04-14 06:31] LABS: NT-proBNP (BNP-Adult 18+) 61 pg/mL (<125)
[2021-04-14 06:53] LABS: Thyroid Stimulating Hormone 2.52 uIU/mL (0.47-4.68)
[2021-04-14 07:20] LABS: UR Morphine/Opiate cutoff 300 Negative (Negative); Ur Creatinine Normal (Normal); Ur Specific Gravity Normal (Normal); Urine Amphetamines Negative (Negative); Urine Barbiturates Negative (Negative); Urine Benzodiazepines Negative (Negative); Urine Cocaine Negative (Negative); Urine MDMA Negative (Negative); Urine Methadone Negative (Negative); Urine Methamphetamines Negative (Negative); Urine Oxycodone Negative (Negative); Urine Phencyclidine Negative (Negative); Urine Tetrahydrocannabinol Negative (Negative); Urine Tricyclic Antidepressant Negative (Negative); Urine pH Normal (Normal)
[2021-04-14 08:00] VITALS: O2SAT 93
[2021-04-14 08:27] VITALS: BP 140/77; PULSE 66; RESP 18; TEMP 36.7; O2SAT 94
[2021-04-14] MEDS: HEPARIN 5,000 UNIT/ML VIAL 5000 UNIT SUBCUT (10:08)
[2021-04-14] MEDS: CLOPIDOGREL 75 MG TABLET PO (10:08)
[2021-04-14] MEDS: ASPIRIN EC 81 MG TABLET PO (10:08)
[2021-04-14] MEDS: lisinopriL 10 MG TABLET PO (10:08)
[2021-04-14] MEDS: LORazepam 1 MG TABLET PO (10:09)
[2021-04-14] MEDS: VENLAFAXINE ER 75 MG CAP PO (10:09)
--- NOTE | 2021-04-14 10:20 | OT.IPNOTE ---
Per Hospitalist no OT eval indicated at this time. Discharge Ot eval orders.
--- NOTE | 2021-04-14 10:26 | PT-IP ANOTE ---
checked EMR and talked to NAC and nurse. pt is independent with mobility with nursing. Informed care plan team and Dr. Quesada agreed that no PT needed for pt at this time. will d/c PT eval order.
--- NOTE | 2021-04-14 10:31 | SLP.IPNOTE ---
Per Hospitalist no ST eval indicated at this time. Discharge ST eval orders
--- NOTE | 2021-04-14 11:35 | PC.NURSE ---
NIH 1 for mild tongue deviation to left; left lobe diminished throughout; pt reports dry cough; ANDERSON 6/10, Tylenol administered; Ativan for claustrophobia with MRI
[2021-04-14 12:11] VITALS: BP 120/72; PULSE 78; RESP 16; TEMP 36.7; O2SAT 92
--- NOTE | 2021-04-14 12:53 | DI.ECHO.S_ITS ---
[facility] +---------+ : : [address] : [address] : : : : [id number] : : : : Phone: [phone]---------+ Echocardiogram Report + + :Name: SUPRIYA CRUZ Study Date: 04/14/2021 Height: 61 in : :[facility] ReadingLocation: Weight: 185 lb : : Gender: Female BSA: 1.8 m2 : :: 1955 Age: 65 yrs BP: 230/81 mmHg: :Reason For Study: R/O EMBOLIC SOURCE : :Ordering Physician: MINA, : :KEM Performed By: Manjula Greenberg : :Referring: KEM ENRIQUEZ : + + Interpretation Summary The left ventricle is normal in size. Left ventricular systolic function appears normal without focal wall motion abnormalities. The ejection fraction is estimated to be 60-65%. Diastolic parameters suggest a relaxation abnormality of the left ventricle, consistent with probable normal filling pressures. The right ventricle is normal in size and function. Pulmonary artery pressures cannot be estimated because of the lack of a measurable TR jet velocity but the IVC suggests a CVP of around 3 mmHg. The left atrial size is normal. Right atrial size is normal. There is no Doppler evidence for an interatrial shunt. Injection of contrast documented no interatrial shunt. There is no significant valvular heart disease. The aortic root is normal size. Procedure: A two-dimensional transthoracic echocardiogram with color flow and Doppler was performed. The study quality was technically adequate. There is no prior echocardiogram noted for this patient. A saline contrast injection was performed to assess for cardiac shunting. The patient was in sinus rhythm with heart rates between 74-90 bpm during the exam. Left Ventricle: The left ventricle is normal in size. Proximal septal thickening is noted. Left ventricular systolic function appears normal without focal wall motion abnormalities. The ejection fraction is estimated to be 60- 65%. Diastolic parameters suggest a relaxation abnormality of the left ventricle, consistent with probable normal filling pressures. Right Ventricle: The right ventricle is normal in size and function. Atria: The left atrial size is normal. Right atrial size is normal. There is no Doppler evidence for an interatrial shunt. Injection of contrast documented no interatrial shunt. Mitral Valve: The mitral valve is normal in structure and function. There is mild mitral regurgitation. Aortic Valve: The aortic valve is trileaflet. The aortic valve opens well. There is no aortic valve stenosis. No aortic regurgitation is present. Tricuspid Valve: The tricuspid valve is normal in structure and function. There is trace tricuspid regurgitation. Pulmonary artery pressures cannot be estimated because of the lack of a measurable TR jet velocity but the IVC suggests a CVP of around 3 mmHg. Pulmonic Valve: The pulmonic valve leaflets are thin and pliable; valve motion is normal. There is trace pulmonic regurgitation. There is no significant valvular heart disease. Great Vessels: The aortic root is normal size. The dimensions of the ascending aorta are normal. The IVC is of normal diameter and collapses greater than 50% with a sniff. This suggests a low right atrial pressure of 3 mm Hg. Pericardium/ Pleura There is no pericardial effusion. There is no pleural effusion. MMode/2D Measurements & Calculations LVIDd: 4.5 cm LVOT diam: 2.0 cm LVIDs: 3.1 cm Ao root diam: 3.3 cm FS: 30.6 % asc Aorta Diam: 3.2 cm IVSd: 0.77 cm Ao Arch Diam (Prox Trans): 3.1 cm LVPWd: 1.1 cm LV sainz. diameter/BSA (cm/m^2): 2.4 LV sys. diameter/BSA (cm/m^2): 1.7 LA A2 area: 16.6 cm2 RA long axis: 4.1 cm LA A4 area: 12.8 cm2 RA area: 11.2 cm2 LA length (vol): 4.6 cm RA vol: 26.3 ml LA vol: 38.8 ml RA : 14.4 ml/m2 LA vol index: 21.2 ml/m2 IVC diam: 1.4 cm RVD1 (basal): 3.7 cm TAPSE: 1.9 cm Doppler Measurements & Calculations Ao V2 max: 133.7 cm/sec LVOT Max Sagar: 107.4 cm/sec Ao V2 mean: 95.6 cm/sec LV V1 max P.6 mmHg Ao max P.2 mmHg LV V1 VTI: 22.8 cm Ao mean P.0 mmHg REINA(I,D): 2.6 cm2 Ao V2 VTI: 27.3 cm REINA(V,D): 2.5 cm2 sev ratio: 0.84 REINA indexed to BSA (cm^2/m^2): 1.4 MV E max sagar: 56.3 cm/sec PA V2 max: 89.8 cm/sec MV A max sagar: 62.7 cm/sec PA V2 mean: 61.3 cm/sec MV E/A: 0.90 PA mean P.7 mmHg Med Peak E' Sagar: 6.7 cm/sec PA pr(Accel): 43.0 mmHg E/E' med: 8.3 Lat Peak E' Sagar: 9.7 cm/sec E/E' lat: 5.8 E/e' average: 7.1 MV dec time: 0.23 sec SV(LVOT): 70.1 ml Reading Physician:03:15 PM
--- NOTE | 2021-04-14 15:41 | P.DS_ITS ---
History of Present Illness History of Present Illness Date Patient Seen: 04/14/21 Chief complaint: Possible stroke, Covid+ Narrative: Leydi Be is a 65-year-old female nonsmoker with history of hypertension, hyperlipidemia, depression, GERD, paroxysmal AFib not on anticoagulation and hypothyroidism is currently COVID positive, unvaccinated who presented with a chief complaint of an episode of difficulty finding words, right hand numbness & tingling x 20 minutes, all of which resolved prior to arrival in the ED, and have not returned.? Upon admit patient denies blurred vision dizziness, lightheadedness, numbness, tingling, weakness, difficulty in ambulation, difficulty swallowing, chest pain, palpitations, shortness of breath, recent illness, injury or trauma.? Patient denies any changes to her medications.? Patient reports that she was exposed to COVID while on holiday in [place] with her brother and family approximately 10-12 days ago.? She reports that she has a cough but that her shortness of breath is not worsened, she denies fever but does report having severe headaches prior to hospitalization with body aches and chills.? Patient currently denies any symptoms and does not require oxygenation.? Patient denies abdominal pain, nausea, vomiting, diarrhea, dysuria, hematuria, melena or hematemesis. Upon admit patient's vitals signs are stable BP 144/69, HR 74, RR 27, O2 saturation 93% on room air.? Admitting NIH:0, Patient's CBC and CMP WNL patient has mild elevation in AST 40 ALT 42.? Patient's head CT is negative for any intracranial acute processes.? Patient admitted for observation for neurological deficit, TIA rule out stroke, and positive COVID-19 infection without acute respiratory failure. Discharge Providers Provider Date of admission: 04/13/21 17:05 Discharge Date: 04/14/21 Primary care physician: KOLBY Winchester Consults: 04/13/21 20:10 Consult to Discharge Planning Routine Comment: Consult to Occupational Therapy Evaluate & Treat Comment: Physician Instructions: Evaluate and treat Consult to Physical Therapy Evaluate & Treat Comment: Physician Instructions: Evaluate and Treat Consult to Speech Therapy Evaluate & Treat Comment: Physician Instructions: Evaluate and treat Discharge provider: Ragini Quesada MD Summary Hospital Course Discharge Diagnosis: 1. Probable TIA 2. Covid-19 Pneumomnia 3. Hypothyroidism 4. Depression 5. GERD Hospital Course: Patient was admitted to the hospital for stroke like symptoms. Her NIH stroke scale score was zero by the time she was admitted. She had no further numbness, tingling, or speech abnormalities. Patient had a MRI of the brain which revealed the following: o acute process.? No recent infarct.2. Volume loss and small vessel ischemic disease.BRAIN MR ANGIOGRAM:? Grossly unremarkable MR angiography of the head.NECK MR ANGIOGRAM:?1. Limited evaluation secondary to motion artifact.2. No internal carotid artery stenosis bilaterally. 3. . Suboptimally visualized great vessels as well as proximal vertebral arteries which areotherwise patent.? She undewent Echo cardiogram the results are as follows: The left ventricle is no rmal in size. Left ventricular systolic function appears normal without focal wall motion abnormalities. The ejection fractionis estimated to be 60-65%. Diastolic parameters suggest a relaxation abnormality of the left ventricle, consistent with probable normal filling pressures.? The right ventricle is normal in size and function. Pulmonary artery pressures cannot be estimated because of the lack of a measurable TR jet velocity but the IVC suggests a CVP of around 3 mmHg.? The left atrial size is normal. Right atrial size is normal. There is no Doppler evidence for an interatrial shunt. Injection of contrast documented no interatrial shunt.? There is no significant valvular heart disease. As patient had no further neurosymptoms she was deemed appropriate for discharge home Status at Discharge Cognitive/behavioral status at discharge: oriented Functional status at discharge: independent ambulation Overall status at discharge: patient is back to baseline Exam Vital Signs (past 8 hours): - 04/14/21 08:00 04/14/21 08:27 04/14/21 12:11 Temperature 98.0 F 98.0 F Pulse Rate 66 78 Respiratory Rate 18 16 Blood Pressure 140/77 120/72 Pulse Oximetry 93 94 92 Oxygen Delivery Method Room Air Oxygen Flow Rate 0 Narrative Exam Narrative: pleasant female in no acute distress HENMT Other: NC/AT Eomi Neuro Other: Cranial Nerves intact, Strength is symmetric and equal, sensation in tact Objective Labs Result Diagrams: 04/13/21 15:20 04/14/21 05:25 Labs: Laboratory Results - last 24 hr 04/13/21 04/13/21 04/13/21 15:20 15:20 16:45 WBC 2.8 L RBC 5.08 Hgb 14.3 Hct 42.9 MCV 84.6 MCH 28.1 MCHC 33.2 RDW 13.9 Plt Count 198 Neut % (Auto) 51.7 Lymph % (Auto) 37.7 [place] % (Auto) 9.7 Eos % (Auto) 0.2 L Baso % (Auto) 0.7 Neut # (Auto) 1500 Lymph # (Auto) 1100 [place] # (Auto) 300 Eos # (Auto) 0 Baso # (Auto) 0 Sodium 136 L Potassium 4.0 Chloride 100 Carbon Dioxide 28 BUN 9 Creatinine 0.91 Estimated GFR > 60.0 BUN/Creatinine Ratio 9.9 Glucose 118 H Calcium 9.0 Total Bilirubin 0.2 AST 40 H ALT 42 H Alkaline Phosphatase 126 NT-Pro-B Natriuret Pep Total Protein 7.3 Albumin 4.4 Globulin 2.9 Albumin/Globulin Ratio 1.5 Triglycerides Cholesterol LDL Cholesterol, Calc HDL Cholesterol TSH U Opiates 300ng/mL cut Ur Oxycodone Screen Urine Methadone Screen Ur Barbiturates Screen U Tricyclic Antidepress Ur Phencyclidine Scrn Ur Amphetamines Screen U Methamphetamines Scrn Ur MDMA Scrn (Ecstasy) U Benzodiazepines Scrn Urine Cocaine Screen U Marijuana (THC) Screen SARS-CoV-2 (PCR) Positive H 04/14/21 04/14/21 04/14/21 05:25 05:25 07:00 WBC RBC Hgb Hct MCV MCH MCHC RDW Plt Count Neut % (Auto) Lymph % (Auto) [place] % (Auto) Eos % (Auto) Baso % (Auto) Neut # (Auto) Lymph # (Auto) [place] # (Auto) Eos # (Auto) Baso # (Auto) Sodium 137 Potassium 3.9 Chloride 104 Carbon Dioxide 27 BUN 6 L Creatinine 0.78 Estimated GFR > 60.0 BUN/Creatinine Ratio 7.7 Glucose 89 Calcium 8.7 Total Bilirubin 0.2 AST 32 ALT 32 Alkaline Phosphatase 117 NT-Pro-B Natriuret Pep 61 Total Protein 6.4 Albumin 3.7 Globulin 2.7 Albumin/Globulin Ratio 1.4 Triglycerides 133 Cholesterol 115 L LDL Cholesterol, Calc 48 HDL Cholesterol 40 TSH 2.52 U Opiates 300ng/mL cut Negative Ur Oxycodone Screen Negative Urine Methadone Screen Negative Ur Barbiturates Screen Negative U Tricyclic Antidepress Negative Ur Phencyclidine Scrn Negative Ur Amphetamines Screen Negative U Methamphetamines Scrn Negative Ur MDMA Scrn (Ecstasy) Negative U Benzodiazepines Scrn Negative Urine Cocaine Screen Negative U Marijuana (THC) Screen Negative SARS-CoV-2 (PCR) [facility] Medical History Allergies Anxiety Carpal tunnel syndrome (~2014) Cervical spine disease Depression (~1972) Dyslipidemia Endometriosis (~1983) Foot pain (~1999) Fractures (~1966) GERD (gastroesophageal reflux disease) Hayfever Hiatal hernia History of heavy periods Hyperlipidemia Hypertension Hypothyroidism Mumps (~1959) Scoliosis (~1967) Shoulder pain (~1999) Wears glasses Surgical History Anesthesia History of spinal fusion (~1967) History of surgery on arm (~1965) History of tonsillectomy (~1961) S/P total abdominal hysterectomy and bilateral salpingo-oophorectomy (~1999) Status post bunionectomy (~1999) Family History Brother Age: 68 Oquendo's esophagus CAD, multiple vessel PTSD (post-traumatic stress disorder) History of heart disease Hypertension Hyperlipidemia Mother CAD (coronary artery disease) Lung cancer Sister Oquendo's esophagus CAD, multiple vessel Sister Age: 66 Stroke History of knee replacement Social History marital status: household members: spouse lives independently: Yes caregiver/support person: No pets and animals: Yes education level: college occupational status: employed Smoking Status: Never smoker alcohol intake: current substance use type: does not use Discharge Assessment & Plan Assessment and Plan Assessment: 1. Probable TIA 2. Covid-19 pneumonia 3.Hypertension 4. hypothytoidism 5. GERD Plan of Treatment: Discharge home. F/u with PCP next week Discharge Plan Discharge Plan Patient Disposition: Home Discharge orders & Medications Prescriptions: New aspirin 81 mg Tablet,Delayed Release (Dr/Ec) 81 mg PO DAILY Qty: 30 RF: 0 Continued azelastine 137 mcg (0.1 %) aerosol,spray 1 spray intranasal BID Qty: 30 RF: 0 benzonatate 100 mg capsule 100 mg PO BID-TID PRN (Reason: cough) Qty: 14 RF: 0 multivitamin [Multiple Vitamins] 1 EACH tablet 1 tab PO QDAY Qty: 0 RF: 0 levothyroxine 25 mcg tablet 25 mcg PO QDAY Qty: 90 RF: 3 lisinopril 10 mg tablet 10 mg PO QDAY Qty: 90 RF: 3 meloxicam [Mobic] 7.5 mg tablet 7.5 mg PO BIDCC Qty: 180 RF: 3 omeprazole 20 mg tablet,delayed release (DR/EC) 20 mg PO BID Qty: 180 RF: 3 pravastatin 20 mg tablet 20 mg PO HS Qty: 90 RF: 3 venlafaxine 75 mg capsule,extended release 24hr 75 mg PO DAILY Qty: 90 RF: 3 melatonin 5 mg capsule 5 mg PO PRN PRN (Reason: Sleep) RF: 0 Follow up/Referrals: Bridger Johnson ARNP [Primary Care Provider] - Discharge Health Status Multidrug resistant organism: No MDRO Diet/Activity/Treatments Diet: Low-fat and Low-sodium Discharge Data Primary Care Provider: Bridger Johnson Attending Provider: Ragini Quesada
--- NOTE | 2021-04-14 17:06 | PC.NURSE ---
Discharge note: IV discontinued, tele discontinued. Reviewed discharge instructions with patient including continuing isolation at home for Covid, follow up with PCP next week, and also [facility] referral. Stroke signs/symptoms printed in packet and reviewed as well. All belongings with patient. Wheeled to car via wheelchair. driving.
== END 2021-04-14 17:05 | disposition home or self-care (01) ==
LOC: ED 15:22 → AC 17:06
PROVIDERS: Nurse Practitioner Family; Admitting Provider Internal Medicine; Emergency Provider Emergency Medicine; PCP Registered Nurse Diabetes Educator; Referring Provider Emergency Medicine; Visit Provider Internal Medicine
DX: U07.1 COVID-19 (principal); J12.82 Pneumonia due to coronavirus disease 2019; I10 Essential (primary) hypertension; E78.5 Hyperlipidemia, unspecified; I48.0 Paroxysmal atrial fibrillation; E03.9 Hypothyroidism, unspecified; R20.0 Anesthesia of skin; K21.9 Gastro-esophageal reflux disease without esophagitis; F32.9 Major depressive disorder, single episode, unspecified; Z20.822 Contact with and (suspected) exposure to COVID-19
CPT/HCPCS: 36415; 70450; 70548; 70553; 80053; 80061; 80305; 82962; 83880; 84443; 85025; 87635; 93005; 93306; 96361; 96372; 96374; 99285; C9803; G0378; J1644; J2405

== ENCOUNTER 2021-09-26 13:05 | Emergency (ER) | payer MEDICARE, SELFPAY ==
[2021-04-17 10:09] VITALS: BMI 34.9
[2021-09-26 13:20] VITALS: BP 165/88; PULSE 77; RESP 18; TEMP 36.2; O2SAT 99; BMI 33.0
[2021-09-26 13:53] LABS: Add Manual Diff / Slide Review NO; Basophils Absolute Auto 100 /uL (0-100); Basophils Percent Auto 1.2 % (0-2); Eosinophils Absolute Auto 100 /uL (0-450); Eosinophils Percent Auto 1.8 % (2-4); Hematocrit 41.8 % (36-46); Hemoglobin 14.1 g/dL (12.0-16.0); Lymphocytes Absolute Auto 1600 /uL (1100-4500); Mean Corpuscular HGB Conc 33.6 % (30-36); Mean Corpuscular Hemoglobin 28.6 PG (26-34); Monocytes Absolute Auto 400 /uL (0-900); Monocytes Percent Auto 7.5 % (3-14); Neutrophils Absolute Auto 3600 /uL (1500-7000); Neutrophils Percent Auto 61.5 % (50-75); Platelet Count 246 X10^3/uL (150-400); Red Blood Cell Count 4.92 X10^6/uL (4.0-5.2); White Blood Cell Count 5.9 X10^3/uL (4.5-11.0)
[2021-09-26 13:59] LABS: Alanine Aminotransferase 22 IU/L (<35); Albumin 4.9 g/dL (3.5-5.0); Albumin Globulin Ratio 1.5 (1.0-2.8); Alkaline Phosphatase 81 U/L (38-126); Aspartate Aminotransferase 35 IU/L (14-36); BUN Creatinine Ratio 8.3 (6-22); Blood Urea Nitrogen 8 mg/dL (7-17); Calcium 9.4 mg/dL (8.4-10.2); Carbon Dioxide 28 mmol/L (22-32); Chloride 102 mmol/L (98-107); Estimated Glomerular Filt Rate 58.3 mL/min (>60); Globulin 3.2 g/dL (1.7-4.1); Glucose 89 mg/dL (80-110); Potassium 5.3 mmol/L (3.4-5.1); Sodium 137 mmol/L (137-145); Total Protein 8.1 g/dL (6.3-8.2)
[2021-09-26 14:01] LABS: HEMOLYSIS 118 (0-50)
[2021-09-26 14:20] LABS: Lipase 109 U/L (23-300)
--- NOTE | 2021-09-26 14:41 | ED_ITS ---
HPI - Back Pain/Injury <Julito Jara PA-C - Last Filed: 09/26/21 20:16> General Chief Complaint: Back Pain/Injury Stated Complaint: R/O kidney stones- sent by [facility] Time Seen by Provider: 09/26/21 13:26 Source: patient History of Present Illness HPI Narrative: Patient is a 65-year-old female presenting to the emergency department today for evaluation of left-sided back pain. The patient was sent over from the walk-in clinic to rule out kidney stones. Patient states she has been experiencing left-sided back and flank pain for the past 1 week, noting that it is begun to radiate up toward her left shoulder blade. Patient also explains that over the past 3 days she has experienced approximately 10 episodes of diarrhea, stating that she has been unable to get to the bathroom in time due to the urgency. She states that she started taking Imodium today and it appears to have improved her symptoms. Patient does endorse associated abdominal pain. She explains that she has not experienced any fever, chills, chest pain, cough, shortness of breath, nausea, vomiting, dysuria, hematuria, saddle anesthesia, urinary incontinence, o r any other concerning symptoms. No further concerns reports at this time. Related Data Home Medications Medication Instructions Recorded Confirmed multivitamin (Multiple Vitamins) 1 tab PO QDAY #0 03/18/17 09/26/21 melatonin 5 mg capsule 5 mg PO PRN PRN 10/08/20 09/26/21 Previous Rx's Medication Instructions Recorded levothyroxine 25 mcg tablet 25 mcg PO QDAY #90 tab 11/05/20 lisinopril 10 mg tablet 10 mg PO QDAY #90 tab 11/05/20 meloxicam 7.5 mg tablet (Mobic) 7.5 mg PO BIDCC #180 tab 11/05/20 omeprazole 20 mg tablet,delayed 20 mg PO BID #180 tab 11/05/20 release pravastatin 20 mg tablet 20 mg PO HS #90 tab 11/05/20 venlafaxine 75 mg capsule,extended 75 mg PO DAILY #90 cap 11/05/20 release 24 hr azelastine 137 mcg (0.1 %) nasal 1 spray INTRANASAL BID #30 ml 01/30/21 spray aerosol benzonatate 100 mg capsule 100 mg PO BID-TID PRN #14 cap 01/30/21 aspirin 81 mg tablet,delayed 81 mg PO DAILY #30 tab 04/14/21 release baclofen 10 mg tablet 10 mg PO TID #30 tab 09/26/21 lidocaine 5 % topical patch 1 patch TOPICAL DAILY PRN #15 ea 09/26/21 Allergies Allergy/AdvReac Type Severity Reaction Status Date / Time codeine [CODEINE] Allergy Mild Verified 09/26/21 13:25 meperidine [MEPERIDINE] Allergy Mild Verified 09/26/21 13:25 morphine [MORPHINE] Allergy Mild Verified 09/26/21 13:25 simvastatin [SIMVASTATIN] Allergy Mild Verified 09/26/21 13:25 Review of Systems <Julito Jara PA-C - Last Filed: 09/26/21 20:16> Constitutional Constitutional: Denies chills, Denies fatigue, Denies fever(s), Denies frequent falls, Denies lethargy and Denies weakness Eyes Eyes: Denies loss of vision ENT Ears, Nose, Mouth, and Throat: Denies dizziness and Denies neck pain Cardiovascular Cardiovascular: Denies chest pain, Denies irregular heart rhythm, Denies lighthe adedness, Denies palpitations, Denies dyspnea, Denies dyspnea on exertion and Denies orthopnea Respiratory Respiratory: Denies cough, Denies dyspnea, Denies dyspnea on exertion and Denies wheezing Gastrointestinal Gastrointestinal: Reports abdominal pain, Denies change in bowel habits, Reports diarrhea, Denies nausea and Denies vomiting Genitourinary Genitourinary: Denies hematuria, Denies flank pain, Denies urinary incontinence and Denies urinary urgency Musculoskeletal Musculoskeletal: Reports back pain, Denies muscle weakness, Denies neck pain, Denies numbness and Denies tingling Integumentary/Breasts Skin/Breast: Denies pruritus, Denies erythema, Denies rash and Denies wounds Neurologic Neurologic: Denies behavioral changes, Denies confusion, Denies dizziness, Denies frequent falls, Denies loss of vision, Denies numbness, Denies tingling and Denies weakness Psychiatric Psychiatric: Denies behavioral changes and Denies confusion Endocrine Endocrine: Denies fatigue and Denies palpitations Allergic/Immunologic Allergic/Immunologic: Denies wheezing Patient History <Julito Jara PA-C - Last Filed: 09/26/21 20:16> Medical History Allergies Anxiety Carpal tunnel syndrome (~2014) Cervical spine disease Depression (~1972) Dyslipidemia Endometriosis (~1983) Foot pain (~1999) Fractures (~1966) GERD (gastroesophageal reflux disease) Hayfever Hiatal hernia History of heavy periods Hyperlipidemia Hypertension Hypothyroidism Mumps (~1959) Scoliosis (~1967) Shoulder pain (~1999) Wears glasses Surgical History Anesthesia History of spinal fusion (~1967) History of surgery on arm (~1965) History of tonsillectomy (~1961) S/P total abdominal hysterectomy and bilateral salpingo-oophorectomy (~1999) Status post bunionectomy (~1999) Family History Brother Age: 68 Oquendo's esophagus CAD, multiple vessel PTSD (post-traumatic stress disorder) History of heart disease Hypertension Hyperlipidemia Mother CAD (coronary artery disease) Lung cancer Sister Oquendo's esophagus CAD, multiple vessel Sister Age: 66 Stroke History of knee replacement Social History marital status: household members: spouse lives independently: Yes caregiver/support person: No pets and animals: Yes education level: college occupational status: employed Smoking Status: Never smoker alcohol intake: current substance use type: does not use Smoking Status: Never smoker alcohol intake frequency: 0-2 drinks per day Substance Use Type: does not use Exam <Julito Jara PA-C - Last Filed: 09/26/21 20:16> Narrative Exam Narrative: GENERAL: 65 year old patient appears stated age. Well-developed patient, in no acute distress. HEAD: Atraumatic. Normocephalic. EYES: Pupils equal round and reactive. Extraocular motions intact. No scleral icterus. No injection or drainage. ENT: Nose without bleeding, purulent drainage. Throat without erythema, tonsillar hypertrophy or exudate. Airway patent. NECK: Trachea midline. Non tender CARDIOVASCULAR: Regular rate and rhythm without murmurs, gallops, or rubs. RESPIRATORY: Clear to auscultation. Breath sounds equal bilaterally. No wheezes, rales, or rhonchi. GASTROINTESTINAL: Abdomen soft, nondistended. Tenderness to palpation appreciated in the right upper quadrant, left upper quadrant, and left lower quadrant of the abdomen with no significant rebound tenderness or guarding. No tenderness to palpation appreciated in the right lower quadrant the abdomen. No masses appreciated. EXTREMITIES: No edema or joint tenderness. BACK: No deformity or crepitance. No flank tenderness. Mild tenderness to palpation appreciated over the left paraspinal muscles in the area T8 through L3. No overlying erythema or ecchymosis. No deformity noted. NEURO: AOx3. Good sensation light touch appreciated throughout the bilateral lower extremities. Gross motor function intact throughout the bilateral lower extremities. SKIN: No rash or erythema of visible areas Initial Vital Signs Initial Vital Signs: Vital Signs Temperature 97.2 F L 09/26/21 13:20 Pulse Rate 77 09/26/21 13:20 Respiratory Rate 18 09/26/21 13:20 Blood Pressure 165/88 H 09/26/21 13:20 Pulse Oximetry 99 09/26/21 13:20 <DO Stone Hauser Last Filed: 09/30/21 07:31> Initial Vital Signs Initial Vital Signs: Vital Signs Temperature 97.2 F L 09/26/21 13:20 Pulse Rate 77 09/26/21 13:20 Respiratory Rate 18 09/26/21 13:20 Blood Pressure 165/88 H 09/26/21 13:20 Pulse Oximetry 99 09/26/21 13:20 Course <Julito Jara PA-C - Last Filed: 09/26/21 20:16> Course Course Narrative: CBC, CMP, lipase, urine dip ordered. Orders Ordered: ED Orders 09/26/21 13:40 CBC Auto Diff [Complete Blood Count AUTO DIFF] Stat CMP [Comprehensive Metabolic Panel] Stat Lipase Stat Vital Signs Vital signs: Vital Signs - 8 hr 09/26/21 13:20 09/26/21 15:43 Temperature 97.2 F L Pulse Rate 77 67 Respiratory Rate 18 18 Blood Pressure 165/88 H 135/77 Pulse Oximetry 99 97 <DO Stone Hauser Last Filed: 09/30/21 07:31> Orders Ordered: ED Orders 09/26/21 13:40 CBC Auto Diff [Complete Blood Count AUTO DIFF] Stat CMP [Comprehensive Metabolic Panel] Stat Lipase Stat Vital Signs Vital signs: Vital Signs - 8 hr 09/26/21 13:20 09/26/21 15:43 Temperature 97.2 F L Pulse Rate 77 67 Respiratory Rate 18 18 Blood Pressure 165/88 H 135/77 Pulse Oximetry 99 97 MDM - Back Pain/Injury <Julito Jara PA-C - Last Filed: 09/26/21 20:16> Lab Data Result diagrams: 09/26/21 13:40 09/26/21 13:40 Labs: Lab Results 09/26/21 09/26/21 09/26/21 Range/Units 13:40 13:40 13:40 WBC 5.9 (4.5-11.0) X10^3/uL RBC 4.92 (4.0-5.2) X10^6/uL Hgb 14.1 (12.0-16.0) g/dL Hct 41.8 (36-46) % MCV 85.0 (80-100) fL MCH 28.6 (26-34) PG MCHC 33.6 (30-36) % RDW 14.0 (11.6-14.8) % Plt Count 246 (150-400) X10^3/uL Neut % (Auto) 61.5 (50-75) % Lymph % (Auto) 28.0 (25-40) % [place] % (Auto) 7.5 (3-14) % Eos % (Auto) 1.8 L (2-4) % Baso % (Auto) 1.2 (0-2) % Neut # (Auto) 3600 (9239-2754) /uL Lymph # (Auto) 1600 (0654-9582) /uL [place] # (Auto) 400 (0-900) /uL Eos # (Auto) 100 (0-450) /uL Baso # (Auto) 100 (0-100) /uL Sodium 137 (137-145) mmol/L Potassium 5.3 H (3.4-5.1) mmol/L Chloride 102 (98-107) mmol/L Carbon Dioxide 28 (22-32) mmol/L BUN 8 (7-17) mg/dL Creatinine 0.96 (0.52-1.04) mg/dL Estimated GFR 58.3 L (>60) mL/min BUN/Creatinine Ratio 8.3 (6-22) Glucose 89 (80-110) mg/dL Calcium 9.4 (8.4-10.2) mg/dL Total Bilirubin 1.0 (0.2-1.3) mg/dL AST 35 (14-36) IU/L ALT 22 (<35) IU/L Alkaline Phosphatase 81 (38-126) U/L Total Protein 8.1 (6.3-8.2) g/dL Albumin 4.9 (3.5-5.0) g/dL Globulin 3.2 (1.7-4.1) g/dL Albumin/Globulin Ratio 1.5 (1.0-2.8) Lipase 109 (23-300) U/L Urine Dip Bedside Urine Glucose 100 mg/dl Bedside Urine Ketone - Negative Urine Specific Veteran 1.015 Bedside Urine Occult Blood - Negative Bedside Urine pH 6.0 Bedside Urine Protein - Negative Bedside Urine Urobilinogen - Negative Bedside Urine Nitrite - Negative Bedside Urine Leukocytes - Negative Esterase MDM Narrative Medical decision making narrative: Differential diagnosis to consider but not limited to urinary tract infection verses pyelonephritis versus ureterolithiasis versus nephrolithiasis versus hydronephrosis versus musculoskeletal back pain. I discussed results of lab studies with patient and informed her that no acute abnormality was identified today that would explain the symptoms that she is experiencing. I informed the patient that imaging does not appear to be appropriate at this time as her lab studies have returned within normal limits. I did discuss results of glucose in her urine, however I explained that her serum glucose was well within normal limits. Patient states that she is comfortable being discharged home at this time and states she will contact her primary care provider on Tuesday for further evaluation and management. Strict return precautions were discussed with the patient prior to discharge. <Juany Parsons, DO - Last Filed: 09/30/21 07:31> Lab Data Labs: Lab Results 09/26/21 09/26/21 09/26/21 Range/Units 13:40 13:40 13:40 WBC 5.9 (4.5-11.0) X10^3/uL RBC 4.92 (4.0-5.2) X10^6/uL Hgb 14.1 (12.0-16.0) g/dL Hct 41.8 (36-46) % MCV 85.0 (80-100) fL MCH 28.6 (26-34) PG MCHC 33.6 (30-36) % RDW 14.0 (11.6-14.8) % Plt Count 246 (150-400) X10^3/uL Neut % (Auto) 61.5 (50-75) % Lymph % (Auto) 28.0 (25-40) % [place] % (Auto) 7.5 (3-14) % Eos % (Auto) 1.8 L (2-4) % Baso % (Auto) 1.2 (0-2) % Neut # (Auto) 3600 (9001-4111) /uL Lymph # (Auto) 1600 (4859-5303) /uL [place] # (Auto) 400 (0-900) /uL Eos # (Auto) 100 (0-450) /uL Baso # (Auto) 100 (0-100) /uL Sodium 137 (137-145) mmol/L Potassium 5.3 H (3.4-5.1) mmol/L Chloride 102 (98-107) mmol/L Carbon Dioxide 28 (22-32) mmol/L BUN 8 (7-17) mg/dL Creatinine 0.96 (0.52-1.04) mg/dL Estimated GFR 58.3 L (>60) mL/min BUN/Creatinine Ratio 8.3 (6-22) Glucose 89 (80-110) mg/dL Calcium 9.4 (8.4-10.2) mg/dL Total Bilirubin 1.0 (0.2-1.3) mg/dL AST 35 (14-36) IU/L ALT 22 (<35) IU/L Alkaline Phosphatase 81 (38-126) U/L Total Protein 8.1 (6.3-8.2) g/dL Albumin 4.9 (3.5-5.0) g/dL Globulin 3.2 (1.7-4.1) g/dL Albumin/Globulin Ratio 1.5 (1.0-2.8) Lipase 109 (23-300) U/L Urine Dip Bedside Urine Glucose 100 mg/dl Bedside Urine Ketone - Negative Urine Specific Veteran 1.015 Bedside Urine Occult Blood - Negative Bedside Urine pH 6.0 Bedside Urine Protein - Negative Bedside Urine Urobilinogen - Negative Bedside Urine Nitrite - Negative Bedside Urine Leukocytes - Negative Esterase Discharge Plan Departure Patient Disposition: Home Clinical Impression: Back pain, Diarrhea Instructions: DI for Back Spasm Activity Restrictions/Additional Instructions: *You have been diagnosed with back pain, diarrhea *What to do: *Please continue to take your regular medications as directed. [X] New medication prescriptions sent to your pharmacy: [facility] - Baclofen [ ] New medication written as a paper prescription [ ] No new medications given You were evaluated in the emergency department today for back pain. Lab studies obtained in the emergency department today returned within normal limits without any signs of acute abnormality that would explain your discomfort. I recommend that you continue taking Imodium as needed for diarrhea, I have sent a prescr iption for a muscle relaxer to your preferred pharmacy to help alleviate your back pain. Please make sure the year contacting your primary care provider within the next 48 hours to set up a follow-up appointment for further evaluation and management. Do not hesitate to return to the emergency depa rtment if you experience fever, worsening pain, persistent vomiting or diarrhea, or any other concerning symptoms. *Please follow up with your primary care provider in 2-3 days, call for an appointment. Let them know you were seen in the Emergency Department and that we ask that you be seen in follow up. We will electronically transmit a record of today's note if your PCP is in our system *If you do not have a primary care provider please contact the [facility] Resource line at [phone]. They will ask some questions about your medical history and help get you set up with a doctor in the community. *Return to Emergency Department if you should have any new, worsening or concerning symptoms, such as fever greater than 101 F, shaking chills, worsening pain, persistent vomiting or other bothersome symptoms. Prescriptions: New baclofen 10 mg tablet 10 mg PO TID Qty: 30 0RF No Action azelastine 137 mcg (0.1 %) aerosol,spray 1 spray intranasal BID Qty: 30 0RF Rx Instructions: administer into each nostril benzonatate 100 mg capsule 100 mg PO BID-TID PRN (Reason: cough) Qty: 14 0RF lidocaine 5 % adhesive patch,medicated 1 patch topical DAILY PRN (Reason: flank pain) Qty: 15 0RF Rx Instructions: leave on most painful area for up to 12 hrs multivitamin [Multiple Vitamins] 1 EACH tablet 1 tab PO QDAY Qty: 0 0RF levothyroxine 25 mcg tablet 25 mcg PO QDAY Qty: 90 3RF lisinopril 10 mg tablet 10 mg PO QDAY Qty: 90 3RF meloxicam [Mobic] 7.5 mg tablet 7.5 mg PO BIDCC Qty: 180 3RF omeprazole 20 mg tablet,delayed release (DR/EC) 20 mg PO BID Qty: 180 3RF pravastatin 20 mg tablet 20 mg PO HS Qty: 90 3RF venlafaxine 75 mg capsule,extended release 24hr 75 mg PO DAILY Qty: 90 3RF melatonin 5 mg capsule 5 mg PO PRN PRN (Reason: Sleep) 0RF aspirin 81 mg Tablet,Delayed Release (Dr/Ec) 81 mg PO DAILY Qty: 30 0RF Referrals: Bridger Johnson ARNP [Primary Care Provider] - <Juany Parsons DO - Last Filed: 09/30/21 07:31> Cosign ED Attending Jenniferature Attestation: I was immediately available in the department for consultation. Documentation has been reviewed. I agree with assessment and plan.
[2021-09-26 15:43] VITALS: BP 135/77; PULSE 67; RESP 18; O2SAT 97
== END 2021-09-26 15:44 | disposition home or self-care (01) ==
PROVIDERS: Emergency Provider Physician Assistant; PCP Registered Nurse Diabetes Educator
DX: M54.9 Dorsalgia, unspecified (principal); R19.7 Diarrhea, unspecified
CPT/HCPCS: 36415; 51798; 80053; 81003; 83690; 85025; 99283

== ENCOUNTER → 2022-01-23 09:57 | Outpatient (CLI) | payer MEDICARE, SELFPAY ==
[2021-04-17 10:09] VITALS: BMI 34.9
[2022-01-23 11:11] LABS: Hematocrit 41.9 % (36-46); Hemoglobin 13.9 g/dL (12.0-16.0); Mean Corpuscular HGB Conc 33.1 % (30-36); Mean Corpuscular Hemoglobin 28.9 PG (26-34); Mean Corpuscular Volume 87.3 fL (80-100); Platelet Count 282 X10^3/uL (150-400); White Blood Cell Count 4.5 X10^3/uL (4.5-11.0)
[2022-01-23 11:29] LABS: Alanine Aminotransferase 27 IU/L (<35); Albumin 4.4 g/dL (3.5-5.0); Albumin Globulin Ratio 1.6 (1.0-2.8); Alkaline Phosphatase 84 U/L (38-126); Aspartate Aminotransferase 25 IU/L (14-36); BUN Creatinine Ratio 14.1 (6-22); Bilirubin Total 0.4 mg/dL (0.2-1.3); Blood Urea Nitrogen 13 mg/dL (7-17); Calcium 9.3 mg/dL (8.4-10.2); Carbon Dioxide 28 mmol/L (22-32); Chloride 103 mmol/L (98-107); Cholesterol 194 mg/dL (140-199); Estimated Glomerular Filt Rate > 60 mL/min (>60); Globulin 2.8 g/dL (1.7-4.1); Glucose 92 mg/dL (80-110); HDL Cholesterol 65 mg/dL (40-60); HEMOLYSIS < 15 (0-50); LDL Cholesterol Calculated 106 mg/dL (<100); Potassium 4.7 mmol/L (3.4-5.1); Sodium 138 mmol/L (137-145); Total Protein 7.2 g/dL (6.3-8.2); Triglycerides 117 mg/dL (35-150)
[2022-01-23 11:56] LABS: TSH w/ Reflex to FT4 1.45 uIU/mL (0.47-4.68)
== END ==
PROVIDERS: PCP Registered Nurse Diabetes Educator; Referring Provider Registered Nurse Diabetes Educator; Visit Provider Registered Nurse Diabetes Educator
DX: I10 Essential (primary) hypertension (principal); E03.9 Hypothyroidism, unspecified; E78.5 Hyperlipidemia, unspecified
CPT/HCPCS: 80053; 80061; 84443; 85027

== ENCOUNTER → 2022-02-04 14:22 | Outpatient (CLI) | payer MEDICARE, SELFPAY ==
[2021-04-17 10:09] VITALS: BMI 34.9
--- NOTE | 2022-02-04 | DI.MG.S_ITS ---
BILATERAL DIGITAL SCREENING MAMMOGRAM 3D/2D WITH CAD: 02/04/2022 CLINICAL: Routine screening. Comparison is made to exams dated: 11/06/2013 mammogram, 07/19/2007 mammogram, and 07/06/2007 mammogram - [facility]. The tissue of both breasts is heterogeneously dense. This may lower the sensitivity of mammography. Current study was also evaluated with a Computer Aided Detection (CAD) system. No significant masses, calcifications, or other findings are seen in either breast. There has been no significant interval change. IMPRESSION: NEGATIVE There is no mammographic evidence of malignancy. A 1 year screening mammogram is recommended. Based on the Tyrer Cuzick model (a risk assessment model) the patient's lifetime risk is 6.5% and her 10 year risk is 3.3%. According to the ACR, ACS, and NCCN guidelines, an annual breast MRI exam along with mammogram is recommended if the patient's lifetime risk is 20% or greater. This exam was interpreted at Station ID: [id number]. NOTE: For mammograms, a report in lay terms will be sent to the patient. Approximately 15% of breast malignancies will not be visualized mammographically. In the management of a palpable breast mass, a negative mammogram must not discourage biopsy of a clinically suspicious lesion. Electronically Signed By: Mitchell [email or web address]:02/04/2022 15:24:03 letter sent: Normal Exam ACR BI-RADS Category 1: Negative 3341F
== END ==
PROVIDERS: PCP Registered Nurse Diabetes Educator; Referring Provider Registered Nurse Diabetes Educator; Visit Provider Registered Nurse Diabetes Educator
DX: Z12.31 Encounter for screening mammogram for malignant neoplasm of breast (principal); M85.89 Other specified disorders of bone density and structure, multiple sites; Z13.820 Encounter for screening for osteoporosis; M85.852 Other specified disorders of bone density and structure, left thigh; Z78.0 Asymptomatic menopausal state; Z90.710 Acquired absence of both cervix and uterus; Z92.23 Personal history of estrogen therapy
CPT/HCPCS: 77063; 77067; 77080

== ENCOUNTER → 2023-04-13 10:08 | Outpatient (CLI) | payer MEDICARE, SELFPAY ==
[2021-04-17 10:09] VITALS: BMI 34.9
[2023-04-13 11:47] LABS: Hematocrit 39.8 % (36-46); Hemoglobin 13.4 g/dL (12.0-16.0); Mean Corpuscular HGB Conc 33.7 % (30-36); Mean Corpuscular Hemoglobin 28.9 PG (26-34); Mean Corpuscular Volume 85.8 fL (80-100); Platelet Count 281 X10^3/uL (150-400); Red Blood Cell Count 4.63 X10^6/uL (4.0-5.2); Red Cell Distribution Width 13.7 % (11.6-14.8); White Blood Cell Count 4.9 X10^3/uL (4.5-11.0)
[2023-04-13 12:36] LABS: Alanine Aminotransferase 19 IU/L (<35); Albumin 4.5 g/dL (3.5-5.0); Albumin Globulin Ratio 1.7 (1.0-2.8); Alkaline Phosphatase 85 U/L (38-126); Aspartate Aminotransferase 25 IU/L (14-36); BUN Creatinine Ratio 14.6 (6-22); Bilirubin Total 0.4 mg/dL (0.2-1.3); Blood Urea Nitrogen 13 mg/dL (7-17); Calcium 10.1 mg/dL (8.4-10.2); Carbon Dioxide 28 mmol/L (22-32); Chloride 101 mmol/L (98-107); Cholesterol 192 mg/dL (140-199); Estimated Glomerular Filt Rate > 60 mL/min (>60); Globulin 2.6 g/dL (1.7-4.1); Glucose 90 mg/dL (80-110); HDL Cholesterol 68 mg/dL (40-60); HEMOLYSIS < 15 (0-50); LDL Cholesterol Calculated 96 mg/dL (<100); Potassium 4.7 mmol/L (3.4-5.1); Sodium 136 mmol/L (137-145); Total Protein 7.1 g/dL (6.3-8.2); Triglycerides 139 mg/dL (35-150)
[2023-04-13 13:06] LABS: TSH w/ Reflex to FT4 2.21 uIU/mL (0.47-4.68)
== END ==
PROVIDERS: PCP Registered Nurse Diabetes Educator; Referring Provider Registered Nurse Diabetes Educator; Visit Provider Registered Nurse Diabetes Educator
DX: E03.9 Hypothyroidism, unspecified (principal); I10 Essential (primary) hypertension; E78.5 Hyperlipidemia, unspecified
CPT/HCPCS: 36415; 80053; 80061; 84443; 85027

== ENCOUNTER → 2023-08-12 09:31 | Outpatient (CLI) | payer MEDICARE, SELFPAY ==
[2021-04-17 10:09] VITALS: BMI 34.9
--- NOTE | 2023-08-12 09:33 | DI.RAD.S_ITS ---
PROCEDURE: XR HAND LT MIN 3V INDICATIONS: injury to left hand 5th metacarpal TECHNIQUE: 3 views of the hand(s) acquired. COMPARISON: [facility], , HAND 3V RIGHT, 05/29/2007, 23:31. FINDINGS: Bones: Generalized decreased osseous mineralization noted. Triscaphe and 1st carpometacarpal joint space narrowing with subchondral sclerosis Soft tissues: No suspicious soft tissue calcifications. IMPRESSION: Osteoarthritis without fracture Approved by: Wade Oneal M.D. on 08/12/2023 at 21:40
== END ==
PROVIDERS: PCP Registered Nurse Diabetes Educator; Referring Provider Nurse Practitioner Family; Visit Provider Nurse Practitioner Family
DX: S62.317A Displaced fracture of base of fifth metacarpal bone, left hand, initial encounter for closed fracture (principal); S69.92XA Unspecified injury of left wrist, hand and finger(s), initial encounter; M19.042 Primary osteoarthritis, left hand; W18.30XA Fall on same level, unspecified, initial encounter
CPT/HCPCS: 73130

== ENCOUNTER → 2024-06-02 11:02 | Outpatient (CLI) | payer MEDICARE, SELFPAY ==
[2021-04-17 10:09] VITALS: BMI 34.9
[2024-06-02 11:26] LABS: Hematocrit 41.2 % (36-46); Hemoglobin 13.8 g/dL (12.0-16.0); Mean Corpuscular HGB Conc 33.5 % (30-36); Mean Corpuscular Hemoglobin 28.6 PG (26-34); Mean Corpuscular Volume 85.3 fL (80-100); Platelet Count 287 X10^3/uL (150-400); Red Blood Cell Count 4.82 X10^6/uL (4.0-5.2); Red Cell Distribution Width 14.5 % (11.6-14.8); White Blood Cell Count 8.2 X10^3/uL (4.5-11.0)
[2024-06-02 11:43] LABS: Alanine Aminotransferase 22 IU/L (<35); Albumin 4.3 g/dL (3.5-5.0); Albumin Globulin Ratio 1.8 (1.0-2.8); Alkaline Phosphatase 92 U/L (38-126); Aspartate Aminotransferase 27 IU/L (14-36); BUN Creatinine Ratio 14.7 (6-22); Bilirubin Total 0.7 mg/dL (0.2-1.3); Blood Urea Nitrogen 15 mg/dL (7-17); Calcium 9.8 mg/dL (8.4-10.2); Carbon Dioxide 27 mmol/L (22-32); Chloride 102 mmol/L (98-107); Cholesterol 168 mg/dL (140-199); Estimated Glomerular Filt Rate 60 mL/min (>60); Globulin 2.4 g/dL (1.7-4.1); Glucose 92 mg/dL (80-110); HDL Cholesterol 70 mg/dL (40-60); HEMOLYSIS < 15 (0-50); LDL Cholesterol Calculated 74 mg/dL (<100); Potassium 4.7 mmol/L (3.4-5.1); Sodium 136 mmol/L (137-145); Total Protein 6.7 g/dL (6.3-8.2); Triglycerides 121 mg/dL (35-150)
== END ==
PROVIDERS: PCP Registered Nurse Diabetes Educator; Referring Provider Registered Nurse Diabetes Educator; Visit Provider Registered Nurse Diabetes Educator
DX: E03.9 Hypothyroidism, unspecified (principal); I10 Essential (primary) hypertension; E78.5 Hyperlipidemia, unspecified
CPT/HCPCS: 36415; 80053; 80061; 84443; 85027

== ENCOUNTER → 2024-06-21 10:12 | Outpatient (CLI) | payer MEDICARE, SELFPAY ==
[2021-04-17 10:09] VITALS: BMI 34.9
[2024-06-21 10:43] LABS: Appearance Urine UA SL CLOUDY; Bilirubin Urine UA NEGATIVE (NEGATIVE); Color Urine UA YELLOW; Glucose Urine UA NEGATIVE (Negative); Ketones Urine UA NEGATIVE (NEGATIVE); Leukocyte Esterase Urine UA 3+ (NEGATIVE); Nitrite Urine UA POSITIVE (Negative); Occult Blood Urine UA TRACE-INTACT (Negative); Protein Urine UA NEGATIVE (Negative); Specific Gravity Urine UA <=1.005 (1.000-1.035)
[2024-06-21 10:50] LABS: Bacteria Urine Few (2-10); Culture Indicated Urine Specimen Cultured; RBC Urine 1-5/HPF (0-5/HPF); Squamous Epithelial Cell Urine 1-5 /HPF (0-5/HPF); Urine Volume Low Vol <10mL (spun); WBC Urine 10-30/HPF (0-5/HPF)
== END ==
PROVIDERS: PCP Registered Nurse Diabetes Educator; Referring Provider Registered Nurse Diabetes Educator; Visit Provider Registered Nurse Diabetes Educator
DX: R30.9 Painful micturition, unspecified (principal); R10.2 Pelvic and perineal pain
CPT/HCPCS: 81001; 87077; 87086; 87186

== ENCOUNTER 2024-12-05 17:40 | Emergency (ER) | payer MEDICARE, SELFPAY ==
[2021-04-17 10:09] VITALS: BMI 34.9
[2024-12-05] VITALS (13 sets, daily range): BP systolic 140–195; BP diastolic 64–88; PULSE 69–94; RESP 16–20; TEMP 36.6; O2SAT 91–95; BMI 30.3
--- NOTE | 2024-12-05 17:55 | DI.RAD.S_ITS ---
PROCEDURE: XR CHEST 1V INDICATIONS: Chest Pain TECHNIQUE: One view of the chest was acquired. COMPARISON: [facility], CR, XR CHEST 2V, 01/30/2021, 17:05. FINDINGS: Surgical changes and devices: None. Lungs and pleura: Asymmetric right hemidiaphragm elevation appears new. Questionable retrocardiac opacity. No pneumothorax or significant pleural effusion. Mediastinum: Mediastinal contours appear normal. Heart size is normal. Probable hiatal hernia. Bones and chest wall: Moderate S-shaped thoracolumbar scoliosis. No acute fractures. Overlying soft tissues are normal. No pneumoperitoneum seen. IMPRESSION: Asymmetric right hemidiaphragm elevation of uncertain etiology. Possible retrocardiac opacity, most likely atelectasis adjacent to hiatal hernia. Correlate with auscultated findings. No pleural effusion. Dictated by: Karin Cortez M.D. on 12/05/2024 at 18:54 Approved by: Karin Cortez M.D. on 12/05/2024 at 18:56
--- NOTE | 2024-12-05 17:55 | EKG_ITS ---
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
[2024-12-05] MEDS: ASPIRIN 81 MG CHEW TAB 324 MG PO (18:00)
[2024-12-05 18:16] LABS: Add Manual Diff / Slide Review NO; Basophils Absolute Auto 100 /uL (0-100); Basophils Percent Auto 1.1 % (0-2); Eosinophils Absolute Auto 100 /uL (0-450); Eosinophils Percent Auto 2.2 % (2-4); Hematocrit 37.6 % (36-46); Hemoglobin 12.5 g/dL (12.0-16.0); Lymphocytes Absolute Auto 1600 /uL (1100-4500); Lymphocytes Percent Auto 24.7 % (25-40); Mean Corpuscular HGB Conc 33.2 % (30-36); Mean Corpuscular Hemoglobin 27.8 PG (26-34); Mean Corpuscular Volume 83.7 fL (80-100); Monocytes Absolute Auto 600 /uL (0-900); Monocytes Percent Auto 9.3 % (3-14); Neutrophils Absolute Auto 4100 /uL (1500-7000); Neutrophils Percent Auto 62.7 % (50-75); Platelet Count 288 X10^3/uL (150-400); Red Blood Cell Count 4.49 X10^6/uL (4.0-5.2); Red Cell Distribution Width 14.1 % (11.6-14.8); White Blood Cell Count 6.5 X10^3/uL (4.5-11.0)
[2024-12-05 18:21] LABS: Prothrombin Time 11.8 SECONDS (9.4-12.5)
[2024-12-05 18:24] LABS: PTT Partial Thromboplastin Tim 32 SECONDS (25.1-36.5)
[2024-12-05 18:26] LABS: Alanine Aminotransferase 17 IU/L (<35); Albumin 4.7 g/dL (3.5-5.0); Albumin Globulin Ratio 1.7 (1.0-2.8); Alkaline Phosphatase 95 U/L (38-126); Aspartate Aminotransferase 27 IU/L (14-36); Bilirubin Total 0.5 mg/dL (0.2-1.3); Blood Urea Nitrogen 16 mg/dL (7-17); Calcium 9.8 mg/dL (8.4-10.2); Carbon Dioxide 27 mmol/L (22-32); Chloride 102 mmol/L (98-107); Creatine Kinase 95 U/L (30-135); Estimated Glomerular Filt Rate > 60 mL/min (>60); Globulin 2.7 g/dL (1.7-4.1); Glucose 82 mg/dL (70-99); HEMOLYSIS < 15 (0-50); Lipase 108 U/L (23-300); Magnesium 2.1 mg/dL (1.6-2.3); Potassium 4.1 mmol/L (3.4-5.1); Sodium 137 mmol/L (137-145); Total Protein 7.4 g/dL (6.3-8.2)
[2024-12-05 18:37] LABS: NT-proBNP (BNP-Adult 18+) 48 pg/mL (<125); Troponin I < 0.012 ng/mL (0.01-0.034)
--- NOTE | 2024-12-05 20:15 | PC.NURSE ---
pt has been having increasing NG with chest tightness over the last several weeks and was sent here today by her PCP, resp even and unlabored, no c/p at present
--- NOTE | 2024-12-05 20:38 | ED.CHESTPAIN ---
HPI - Chest Pain General Chief Complaint: Chest Pain Stated Complaint: Sent by Dr vergara breathing tightness in chest Time Seen by Provider: 12/05/24 20:10 Mode of arrival: Ambulatory History of Present Illness HPI narrative: 69-year-old woman with history of TIA in March, hypothyroidism, hypertension, reflux, hyperlipidemia presents with worsening exertional dyspnea, chest tightness, dizziness for a number of weeks. Difficulty performing even basic patrol guard due to shortness of breath and fatigue. She finds that it is difficult to walk to the bedroom from the kitchen without needing to stop to breathe feeling significantly dizzy and dyspneic. Better with rest. No overt chest pain or palpitations. No lower extremity edema. She has never had issues with congestive heart failure, no smoking history. She does note a slight dry cough. She does have a history of reflux continues on omeprazole does not describe significant heartburn issues at this time Related Data Home Medications ?Medication ?Instructions ?Recorded ?Confirmed melatonin 5 mg capsule 5 mg PO PRN PRN Sleep 10/08/20 08/21/24 Previous Rx's ?Medication ?Instructions ?Recorded aspirin 81 mg tablet,delayed 81 mg PO DAILY #90 tabs 06/05/24 release levothyroxine 25 mcg tablet 25 mcg PO QDAY #90 tabs 06/05/24 lisinopril 10 mg tablet 10 mg PO QDAY #90 tabs 06/05/24 omeprazole 20 mg tablet,delayed 20 mg PO BID #180 tabs 06/05/24 release pravastatin 20 mg tablet 20 mg PO HS #90 tabs 06/05/24 venlafaxine 37.5 mg 37.5 mg PO DAILY #90 caps 06/05/24 capsule,extended release 24 hr celecoxib 100 mg capsule (Celebrex) 100 mg PO BID #60 caps 10/30/24 Allergies Allergy/AdvReac Type Severity Reaction Status Date / Time codeine (CODEINE) Allergy Mild Verified 12/05/24 17:49 meperidine (MEPERIDINE) Allergy Mild Verified 12/05/24 17:49 morphine (MORPHINE) Allergy Mild Verified 12/05/24 17:49 simvastatin (SIMVASTATIN) Allergy Mild Verified 12/05/24 17:49 Review of Systems Review of Systems Narrative: Pertinent positive and negative findings as per HPI Patient History Medical History Osteopenia History of TIA (transient ischemic attack) Wears glasses Allergies Depression (~1972) Anxiety Shoulder pain (~1999) Scoliosis (~1967) Fractures (~1966) Foot pain (~1999) Carpal tunnel syndrome (~2014) Mumps (~1959) Endometriosis (~1983) Dyslipidemia Hiatal hernia History of heavy periods Hyperlipidemia Hypertension Hypothyroidism GERD (gastroesophageal reflux disease) Hayfever Cervical spine disease Surgical History Anesthesia History of surgery on arm (~1965) Status post bunionectomy (~1999) History of spinal fusion (~1967) History of tonsillectomy (~1961) S/P total abdominal hysterectomy and bilateral salpingo-oophorectomy (~1999) Family History Brother Age: 72 Oquendo's esophagus CAD, multiple vessel PTSD (post-traumatic stress disorder) History of heart disease Hypertension Hyperlipidemia Mother CAD (coronary artery disease) Lung cancer Sister Oquendo's esophagus CAD, multiple vessel Sister Age: 70 Stroke History of knee replacement Social History marital status: household members: spouse lives independently: Yes caregiver/support person: No pets and animals: Yes education level: college occupational status: employed Smoking Status: Never smoker alcohol intake: current substance use type: does not use Smoking Status: Never smoker alcohol intake frequency: 0-2 drinks per day Exam Initial Vital Signs Initial Vital Signs: Vital Signs Temperature 98 F 12/05/24 17:49 Pulse Rate 79 12/05/24 17:49 Respiratory Rate 20 12/05/24 17:49 Blood Pressure 165/84 H 12/05/24 17:49 Pulse Oximetry 94 12/05/24 17:49 Oxygen Delivery Method Room Air 12/05/24 17:49 General: Healthy appearing, in no acute distress. Able to give a complete and coherent history. Well-nourished well-developed HEENT: Moist mucous membranes, normal sclera with reactive pupils, Neck: No JVD, supple Respiratory: Lungs are clear to auscultation, no wheezing in lung yu however there is some expiratory wheeze appreciated when she is walking, no rales no rhonchi. Full and symmetrical air movement Cardiac: Regular rate and rhythm no murmurs no bruits Abdomen: Soft, nontender, no rebound or guarding, no flank pain Skin: Warm and dry, no rashes Neurologic: Grossly neurologically intact with no obvious asymmetries or abnormalities Extremities: No trauma, well perfused Psych: Cooperative, appropriate insight and affect Course Orders Ordered: ED Orders 12/05/24 17:55 XR chest 1V Stat EKG-12 Lead Stat 12/05/24 18:07 Complete Blood Count AUTO DIFF Stat Comprehensive Metabolic Panel Stat Lipase Stat Magnesium Stat NT-proBNP (BNP-Adult 18+) Stat PTT Partial Thromboplastin Amrik Stat Prothrombin Time INR Stat Troponin & CK Cardiac Panel Stat 12/05/24 20:02 Troponin I Stat 12/05/24 21:14 CT angio chest PE protocol Stat Discontinued Medications Albuterol/Ipratropium (Albuterol/Ipratropium 3 Ml Ampul) 3 ml INH NOW ONE Stop: 12/05/24 21:16 Last Admin: 12/05/24 21:29 Dose: 3 ml Documented By: MR Aspirin (Aspirin 81 Mg Chew Tab) 324 mg PO NOW ONE Stop: 12/05/24 17:56 Last Admin: 12/05/24 18:00 Dose: 324 mg Documented By: MPO Vital Signs Vital signs: Vital Signs - 8 hr 12/05/24 17:49 12/05/24 19:46 12/05/24 19:47 Temperature 98 F Pulse Rate 79 94 H Respiratory Rate 20 Blood Pressure 165/84 H 195/88 H Pulse Oximetry 94 93 Oxygen Delivery Method Room Air 12/05/24 19:47 12/05/24 20:00 12/05/24 20:00 Temperature Pulse Rate 75 69 Respiratory Rate 18 Blood Pressure 162/84 H Pulse Oximetry 92 95 Oxygen Delivery Method 12/05/24 20:30 12/05/24 20:30 12/05/24 21:00 Temperature Pulse Rate 69 Respiratory Rate Blood Pressure 146/79 H 147/79 H Pulse Oximetry 93 Oxygen Delivery Method 12/05/24 21:00 12/05/24 21:30 12/05/24 21:31 Temperature Pulse Rate 70 69 70 Respiratory Rate Blood Pressure Pulse Oximetry 92 94 92 Oxygen Delivery Method 12/05/24 21:31 12/05/24 21:33 Temperature Pulse Rate 79 Respiratory Rate 16 Blood Pressure 140/64 Pulse Oximetry 94 Oxygen Delivery Method MDM - Chest Pain Lab Data 12/05/24 18:07 12/05/24 18:07 Labs: Lab Results 12/05/24 12/05/24 Range/Units 18:07 20:02 WBC 6.5 (4.5-11.0) X10^3/uL RBC 4.49 (4.0-5.2) X10^6/uL Hgb 12.5 (12.0-16.0) g/dL Hct 37.6 (36-46) % MCV 83.7 (80-100) fL MCH 27.8 (26-34) PG MCHC 33.2 (30-36) % RDW 14.1 (11.6-14.8) % Plt Count 288 (150-400) X10^3/uL Neut % (Auto) 62.7 (50-75) % Lymph % (Auto) 24.7 L (25-40) % Mcclain % (Auto) 9.3 (3-14) % Eos % (Auto) 2.2 (2-4) % Baso % (Auto) 1.1 (0-2) % Neut # (Auto) 4100 (5656-5094) /uL Lymph # (Auto) 1600 (1437-9011) /uL Mcclain # (Auto) 600 (0-900) /uL Eos # (Auto) 100 (0-450) /uL Baso # (Auto) 100 (0-100) /uL PT 11.8 (9.4-12.5) SECONDS INR 1.0 (0.9-1.3) APTT 32 (25.1-36.5) SECONDS Sodium 137 (137-145) mmol/L Potassium 4.1 (3.4-5.1) mmol/L Chloride 102 (98-107) mmol/L Carbon Dioxide 27 (22-32) mmol/L BUN 16 (7-17) mg/dL Creatinine 0.89 (0.52-1.04) mg/dL Estimated GFR > 60 (>60) mL/min BUN/Creatinine Ratio 18.0 (6-22) Glucose 82 (70-99) mg/dL Calcium 9.8 (8.4-10.2) mg/dL Magnesium 2.1 (1.6-2.3) mg/dL Total Bilirubin 0.5 (0.2-1.3) mg/dL AST 27 (14-36) IU/L ALT 17 (<35) IU/L Alkaline Phosphatase 95 (38-126) U/L Total Creatine Kinase 95 (30-135) U/L Troponin I < 0.012 < 0.012 (0.01-0.034) ng/mL NT-Pro-B Natriuret Pep 48 (<125) pg/mL Total Protein 7.4 (6.3-8.2) g/dL Albumin 4.7 (3.5-5.0) g/dL Globulin 2.7 (1.7-4.1) g/dL Albumin/Globulin Ratio 1.7 (1.0-2.8) Lipase 108 (23-300) U/L Imaging Data CT scan - chest: Radiologist's Impression: PROCEDURE: CT ANGIO CHEST PE PROTOCOL INDICATIONS: progessive dyspnea TECHNIQUE: After the administration of intravenous contrast, 2 mm thick sections acquired from the pulmonary apices to the posterior costophrenic angles. 3-dimensional maximum intensity projection (MIP) coronal and sagittal reformats were then acquired through the thorax. For radiation dose reduction, the following was used: automated exposure control, adjustment of mA and/or kV according to patient size. COMPARISON: None. FINDINGS: Image quality: Diagnostic. Pulmonary arteries: Pulmonary arteries are normal in size, and demonstrate no intraluminal filling defects to suggest central pulmonary embolism. Lower Neck: No enlarged lymph nodes. Thyroid: No thyroid nodules which require sonographic follow up, per consensus guidelines. Axillae: No enlarged lymph nodes. Chest Wall: Unremarkable. Bones: No aggressive appearing bony lesions. S shaped scoliosis of thoracic and lumbar spine is seen. Spondylitic changes throughout thoracic and lumbar spine is seen. Lungs and Pleura: No pneumothorax or pleural effusions. Significant elevation of right hemidiaphragm with compressive atelectasis involving right lung base. No focal infiltrate. No suspicious pulmonary nodules. Mild left basilar dependent atelectasis is seen. Central and peripheral airway is patent. Heart: Heart size is normal. No pericardial effusion. Thoracic Vessels: No aortic aneurysm. Mediastinum and Pema: No enlarged lymph nodes. Esophagus: No wall thickening. Large hiatal hernia. Upper Abdomen: Visualized upper abdomen solid organs and bowel loops appear normal. IMPRESSION: 1. No pulmonary embolus. No thoracic aortic aneurysm or dissection. 2. Elevation of right hemidiaphragm with compressive atelectasis in posterior medial aspect of right lower lobe. Mild dependent atelectasis in posterior aspect of left lower lobe. No focal infiltrate, pleural effusion or pneumothorax. 3. No mediastinal or hilar lymphadenopathy. Large hiatal hernia. Dictated by: Mikel Mancera M.D. on 12/05/2024 at 22:09 MDM Narrative Medical decision making narrative: CC: Increasing exertional dyspnea Complicating co-morbidities: Reflux, hypertension, hyperlipidemia Data collected from: patient, Medical records reviewed: Primary care notes from August are reviewed Differential considered: Acute coronary syndrome, pulmonary embolism, pneumonia, severe anemia, congestive heart failure, pulmonary fibrosis, reactive airway disease Exam documented above, pertinent findings include: Exam is essentially unremarkable. She is asked to walk at the bed side with her oxygen sat monitor on. Drops as low as 92. After brief activity I still do not appreciate wheeze in lower lung yu but she does have an audible expiratory wheeze. Lab Test results independently reviewed as above. Pertinent findings: CBC is unremarkable Chemistries are reassuring Initial and repeat troponin are undetectable BNP isn't detectable Independently reviewed EKG: EKG shows sinus rhythm at a rate of 73 with no acute ischemic changes Imaging studies independently reviewed: Chest x-ray is unremarkable Re-evaluations: Reviewed initial workup. This point I do not have an explanation for her exertional dyspnea. No acute coronary syndrome, congestive heart failure, obvious infiltrates. Chronic PE and pulmonary fibrosis both remain within the differential. We will try a nebulizer to see if this changes in your symptoms, symptoms may be related to chronic pulmonary injury with her reflux. With shared decision-making we opted to proceed with CT scan of the chest Discussion: 69-year-old woman with progressive exertional dyspnea. No evidence of acute coronary syndrome or unstable angina, no infection, CT angiogram shows essentially normal lung parenchyma, no masses or tumors, no evidence of pulmonary embolism. Blood work suggests no congestive heart failure and no evidence of other infection. At this point I do not have a full explanation for her progressive dyspnea. I do not think that she needs hospitalization today refer her back to her primary care physician I suspect the next steps will need to be a stress test and probably echocardiogram. If those are unremarkable then proceeding with pulmonary function tests may be appropriate. All of this is discussed with the patient, there was no indication for hospitalization she is safe for discharge Discharge Plan Departure Patient Disposition: Home Clinical Impression: Exertional dyspnea Instructions: DI for Shortness of Breath Activity Restrictions/Additional Instructions: Thank you for coming in today Your workup is actually quite reassuring. With increasing shortness a breath particularly and woman I do worry about heart disease. I am not seeing any evidence of unstable angina or acute coronary syndrome or reason for hospitalization today. You are not anemic, there was no sign of infection, you do not have any masses or tumors in your lungs. No pulmonary embolism no significant abnormalities in the lung tissue itself with a CT scan that was done. Neck at this time the next appropriate step will be to follow up with your primary care physician. In terms of continued outpatient workup I believe a stress test we will be appropriate, he may benefit from an echocardiogram and if that does not show findings in the next steps would be a deeper look into pulmonary function testing If you find that you are getting worse or develop any new symptoms, please feel free to return to the emergency department for further evaluation. Prescriptions: No Action celecoxib [Celebrex] 100 mg capsule 100 mg PO BID Qty: 60 3RF melatonin 5 mg capsule 5 mg PO PRN PRN (Reason: Sleep) aspirin 81 mg tablet,delayed release (DR/EC) 81 mg PO DAILY Qty: 90 3RF levothyroxine 25 mcg tablet 25 mcg PO QDAY Qty: 90 3RF lisinopril 10 mg tablet 10 mg PO QDAY Qty: 90 3RF omeprazole 20 mg tablet,delayed release (DR/EC) 20 mg PO BID Qty: 180 3RF pravastatin 20 mg tablet 20 mg PO HS Qty: 90 3RF venlafaxine 37.5 mg capsule,extended release 24hr 37.5 mg PO DAILY Qty: 90 3RF Referrals: Bridger Johnson ARNP [Primary Care Provider, Medical] Stand Alone Forms: Patient Portal/API
[2024-12-05 20:42] LABS: Troponin I < 0.012 ng/mL (0.01-0.034)
--- NOTE | 2024-12-05 21:14 | DI.CT.S_ITS ---
PROCEDURE: CT ANGIO CHEST PE PROTOCOL INDICATIONS: progessive dyspnea TECHNIQUE: After the administration of intravenous contrast, 2 mm thick sections acquired from the pulmonary apices to the posterior costophrenic angles. 3-dimensional maximum intensity projection (MIP) coronal and sagittal reformats were then acquired through the thorax. For radiation dose reduction, the following was used: automated exposure control, adjustment of mA and/or kV according to patient size. COMPARISON: None. FINDINGS: Image quality: Diagnostic. Pulmonary arteries: Pulmonary arteries are normal in size, and demonstrate no intraluminal filling defects to suggest central pulmonary embolism. Lower Neck: No enlarged lymph nodes. Thyroid: No thyroid nodules which require sonographic follow up, per consensus guidelines. Axillae: No enlarged lymph nodes. Chest Wall: Unremarkable. Bones: No aggressive appearing bony lesions. S shaped scoliosis of thoracic and lumbar spine is seen. Spondylitic changes throughout thoracic and lumbar spine is seen. Lungs and Pleura: No pneumothorax or pleural effusions. Significant elevation of right hemidiaphragm with compressive atelectasis involving right lung base. No focal infiltrate. No suspicious pulmonary nodules. Mild left basilar dependent atelectasis is seen. Central and peripheral airway is patent. Heart: Heart size is normal. No pericardial effusion. Thoracic Vessels: No aortic aneurysm. Mediastinum and Pema: No enlarged lymph nodes. Esophagus: No wall thickening. Large hiatal hernia. Upper Abdomen: Visualized upper abdomen solid organs and bowel loops appear normal. IMPRESSION: 1. No pulmonary embolus. No thoracic aortic aneurysm or dissection. 2. Elevation of right hemidiaphragm with compressive atelectasis in posterior medial aspect of right lower lobe. Mild dependent atelectasis in posterior aspect of left lower lobe. No focal infiltrate, pleural effusion or pneumothorax. 3. No mediastinal or hilar lymphadenopathy. Large hiatal hernia. Dictated by: Mikel Mancera M.D. on 12/05/2024 at 22:09 Approved by: Mikel Mancera M.D. on 12/05/2024 at 22:11
[2024-12-05] MEDS: ALBUTEROL/IPRATROPIUM 3 ML AMPUL INH (21:29)
[2024-12-06] VITALS: PULSE 71; RESP 18; O2SAT 92
[2024-12-06 00:15] VITALS: BP 140/69; PULSE 71; RESP 18; TEMP 36.9; O2SAT 92
== END 2024-12-06 00:16 | disposition home or self-care (01) ==
PROVIDERS: Family Medicine; Emergency Provider Emergency Medicine; PCP Registered Nurse Diabetes Educator
DX: R06.09 Other forms of dyspnea (principal); R42 Dizziness and giddiness; R07.89 Other chest pain; Z86.73 Personal history of transient ischemic attack (TIA), and cerebral infarction without residual deficits
CPT/HCPCS: 36415; 71045; 71275; 80053; 82550; 83690; 83735; 83880; 84484; 85025; 85610; 85730; 93005; 93010; 94640; 99284; Q9967

== ENCOUNTER → 2024-12-18 10:07 | Outpatient (CLI) | payer MEDICARE, SELFPAY ==
[2021-04-17 10:09] VITALS: BMI 34.9
--- NOTE | 2024-12-18 10:08 | DI.ECHO.S_ITS ---
[facility] : : [id number] : [place] : : [id number] : : Phone: [phone] Echocardiogram Report + + :Name: SUPRIYA CRUZ Study Date: 12/18/2024 Height: 62 in : :Hospital ReadingLocation: Weight: 166 lb : : Gender: Female BSA: 1.8 m2 : :: 1955 Age: 69 yrs BP: 143/85 mmHg: :Reason For Study: SHORTNESS OF BREATH, FATIGUE : :Ordering Physician: KAVITA, : :PARDEEP Performed By: Thanh Mcwilliams : :Referring: PARDEEP WALLS : + + Interpretation Summary The ejection fraction is estimated to be 55-60%. Proximal septal thickening is noted. There is systolic anterior motion of the chordal apparatus. There is trace tricuspid regurgitation. The right ventricular systolic pressure is estimated to be at least 36 mmHg based on an estimated right atrial pressure of 3 mm Hg. Procedure: A two-dimensional transthoracic echocardiogram with color flow and Doppler was performed. The study quality was technically adequate. Comparison is made with the echocardiogram of 04/14/2021. The patient was in normal sinus rhythm during the exam. Left Ventricle: The left ventricle is normal in size. There is normal left ventricular wall thickness. Proximal septal thickening is noted. There is no ventricular septal defect visualized. The ejection fraction is estimated to be 55-60%. There are no focal wall motion abnormalities. Diastolic parameters suggest a relaxation abnormality of the left ventricle, consistent with probable normal filling pressures. Right Ventricle: The right ventricle is normal in size and function. Atria: The left atrial size is normal. Right atrial size is normal. There is no Doppler evidence for an interatrial shunt. Mitral Valve: There is mild mitral annular calcification. The mitral valve leaflets appear normal. There is no evidence of stenosis, fluttering, or prolapse. There is systolic anterior motion of the chordal apparatus. There is no mitral regurgitation noted. Aortic Valve: The aortic valve is trileaflet. The aortic valve opens well. No aortic regurgitation is present. Tricuspid Valve: The tricuspid valve leaflets are thin and pliable. There is trace tricuspid regurgitation. The right ventricular systolic pressure is estimated to be at least 36 mmHg based on an estimated right atrial pressure of 3 mm Hg. Pulmonic Valve: The pulmonic valve is not well seen, but is grossly normal. There is trace pulmonic regurgitation. Great Vessels: The aortic root is normal size. The dimensions of the ascending aorta are normal. The pulmonary artery is normal size. The IVC is of normal diameter and collapses greater than 50% with a sniff. This suggests a low right atrial pressure of 3 mm Hg. Pericardium/ Pleura There is no pericardial effusion. There is no pleural effusion. MMode/2D Measurements & Calculations LVIDd: 5.1 cm LVOT diam: 2.0 cm LVIDs: 3.2 cm Ao root diam: 3.2 cm FS: 38.1 % asc Aorta Diam: 3.4 cm IVSd: 0.99 cm LVPWd: 0.90 cm LV sainz. diameter/BSA (cm/m^2): 2.9 LV sys. diameter/BSA (cm/m^2): 1.8 LA A2 area: 17.6 cm2 RA long axis: 3.3 cm LA A4 area: 16.0 cm2 RA area: 7.1 cm2 LA length (vol): 5.2 cm RA vol: 13.0 ml LA vol: 46.5 ml RA : 7.4 ml/m2 LA vol index: 26.3 ml/m2 IVC diam: 1.5 cm RVD1 (basal): 3.7 cm RVD2 (mid): 2.2 cm TAPSE: 2.1 cm Doppler Measurements & Calculations Ao V2 max: 141.4 cm/sec LVOT Max Sagar: 109.8 cm/sec Ao V2 mean: 107.1 cm/sec LV V1 max P.8 mmHg Ao max P.0 mmHg LV V1 VTI: 26.4 cm Ao mean P.9 mmHg REINA(I,D): 2.6 cm2 Ao V2 VTI: 31.4 cm REINA(V,D): 2.4 cm2 sev ratio: 0.84 REINA indexed to BSA (cm^2/m^2): 1.5 MV E max sagar: 64.4 cm/sec TR max sagar: 286.4 cm/sec MV A max sagar: 74.6 cm/sec TR max P.8 mmHg MV E/A: 0.86 PA V2 max: 112.1 cm/sec Med Peak E' Sagar: 6.4 cm/sec PA V2 mean: 78.0 cm/sec E/E' med: 10.1 PA mean P.7 mmHg Lat Peak E' Sagar: 9.0 cm/sec PA pr(Accel): 53.3 mmHg E/E' lat: 7.1 E/e' average: 8.6 MV dec time: 0.17 sec SV(LVOT): 81.4 ml Reading Physician:04:28 PM
--- NOTE | 2024-12-19 08:38 | DI.NM.S_ITS ---
DATE OF SERVICE: 12/18/2024 PROCEDURE: Exercise stress test. INDICATIONS: Shortness of breath with underlying hypertension, hyperlipidemia. CARDIAC STRESS: The patient underwent exercise stress test under the supervision of an attending staff. She walked on Gomez protocol for 4 minutes and 11 seconds, achieved 7 METs of workload, maximum heart rate of 165 which was 109% of target heart rate. Resting blood pressure 134/90 and peak blood pressure 180/104. Baseline rhythm sinus. During stress, some nonspecific ST-T changes without any convincing ischemic changes. No significant arrhythmias. The patient had significant shortness of breath with exercise without any chest pain. Oxygen saturation 94% during maximum exercise. Within 3 minutes, heart rate increased up to 151 suggestive of enhanced chronotropic response. Recovery was almost normal. CONCLUSION: Exercise stress test is negative for inducible ischemia. Markedly diminished exercise tolerance. Hypertensive blood pressure response with peak blood pressure 180/104 mmHg. Enhanced chronotropic response. The patient had significant shortness of breath with oxygen saturation 94% at maximum exercise. No chest pain. No significant arrhythmias. Correlate clinically. Leydi Be - PAZ/lucero/[place] doc#: [id number]/job#: [id number] dd: 12/18/2024 17:27:00 dt: 12/18/2024 17:34:00 DICTATING MD/COPIES TO: Raymond Martinez MD COPIES MNE: YANICK;
== END ==
PROVIDERS: PCP Registered Nurse Diabetes Educator; Referring Provider Registered Nurse Diabetes Educator; Visit Provider Nurse Practitioner Family
DX: I34.81 Nonrheumatic mitral (valve) annulus calcification (principal); R06.02 Shortness of breath; I10 Essential (primary) hypertension
CPT/HCPCS: 93017; 93306

== ENCOUNTER → 2025-03-01 15:13 | Outpatient (CLI) | payer MEDICARE, SELFPAY ==
[2021-04-17 10:09] VITALS: BMI 34.9
--- NOTE | 2025-03-01 15:14 | DI.RAD.S_ITS ---
PROCEDURE: FL FLUOROSCOPY >1HR COMPARISON: None. INDICATIONS: sniff test; assess diaphragm paralysis FINDINGS: During normal and deep breathing, there is relative lack of movement in the right hemidiaphragm and normal movement of the left hemidiaphragm. Paradoxical movement of right hemidiaphragm is noted during sniffing. 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 Dictated by: Mikel Mancera M.D. on 03/01/2025 at 16:00 Approved by: Mikel Mancera M.D. on 03/01/2025 at 16:07
== END ==
LOC: RAD 15:14
PROVIDERS: PCP Registered Nurse Diabetes Educator; Visit Provider Radiology Diagnostic Radiology
DX: J98.6 Disorders of diaphragm (principal); R06.02 Shortness of breath
CPT/HCPCS: 76000

== ENCOUNTER → 2025-03-07 14:09 | Outpatient (CLI) | payer MEDICARE, SELFPAY ==
[2021-04-17 10:09] VITALS: BMI 34.9
== END ==
PROVIDERS: PCP Registered Nurse Diabetes Educator; Referring Provider Registered Nurse Diabetes Educator; Visit Provider Internal Medicine
DX: R06.02 Shortness of breath (principal); J98.6 Disorders of diaphragm; Z77.22 Contact with and (suspected) exposure to environmental tobacco smoke (acute) (chronic); R94.2 Abnormal results of pulmonary function studies
CPT/HCPCS: 94060; 94618; 94726; 94729

== ENCOUNTER → 2025-03-09 10:26 | Outpatient (CLI) | payer MEDICARE, SELFPAY ==
[2021-04-17 10:09] VITALS: BMI 34.9
[2025-03-09 11:32] LABS: Hematocrit 36.5 % (36-46); Hemoglobin 12.1 g/dL (12.0-16.0); Mean Corpuscular HGB Conc 33.3 % (30-36); Mean Corpuscular Hemoglobin 27.1 PG (26-34); Mean Corpuscular Volume 81.5 fL (80-100); Platelet Count 249 X10^3/uL (150-400)
[2025-03-09 11:52] LABS: Blood Urea Nitrogen 13 mg/dL (7-17); Calcium 9.4 mg/dL (8.4-10.2); Carbon Dioxide 25 mmol/L (22-32); Chloride 101 mmol/L (98-107); Estimated Glomerular Filt Rate > 60 mL/min (>60); Glucose 88 mg/dL (70-99); HEMOLYSIS < 15 (0-50); Potassium 4.4 mmol/L (3.4-5.1); Sodium 136 mmol/L (137-145)
== END ==
PROVIDERS: PCP Registered Nurse Diabetes Educator; Referring Provider Internal Medicine Cardiovascular Disease; Visit Provider Internal Medicine Cardiovascular Disease
DX: R06.2 Wheezing (principal); R07.89 Other chest pain; R55 Syncope and collapse
CPT/HCPCS: 36415; 80048; 85027

== ENCOUNTER → 2025-04-08 14:42 | Outpatient (CLI) | payer MEDICARE, SELFPAY ==
[2021-04-17 10:09] VITALS: BMI 34.9
== END ==
PROVIDERS: PCP Registered Nurse Diabetes Educator; Referring Provider Registered Nurse Diabetes Educator; Visit Provider Internal Medicine
DX: J98.6 Disorders of diaphragm (principal); R94.2 Abnormal results of pulmonary function studies
CPT/HCPCS: 94010

== ENCOUNTER → 2025-05-01 14:28 | Outpatient (CLI) | payer MEDICARE, SELFPAY ==
[2021-04-17 10:09] VITALS: BMI 34.9
--- NOTE | 2025-05-01 14:29 | DI.US.S_ITS ---
PROCEDURE: US CAROTID DOPPLER BI
== END ==
LOC: US 14:29
PROVIDERS: PCP Registered Nurse Diabetes Educator; Referring Provider Internal Medicine Cardiovascular Disease; Visit Provider Internal Medicine Cardiovascular Disease
DX: H53.123 Transient visual loss, bilateral (principal); R07.89 Other chest pain; R42 Dizziness and giddiness
CPT/HCPCS: 93880

== ENCOUNTER → 2025-05-07 08:14 | Outpatient (CLI) | payer MEDICARE, SELFPAY ==
[2021-04-17 10:09] VITALS: BMI 34.9
== END ==
LOC: RESP 08:14
PROVIDERS: PCP Registered Nurse Diabetes Educator; Referring Provider Internal Medicine; Visit Provider Internal Medicine
DX: R06.02 Shortness of breath (principal); R94.2 Abnormal results of pulmonary function studies
CPT/HCPCS: 94010; 94070

== ENCOUNTER → 2025-06-01 09:26 | Outpatient (CLI) | payer MEDICARE, SELFPAY ==
[2021-04-17 10:09] VITALS: BMI 34.9
[2025-06-01 11:42] LABS: Hematocrit 37.4 % (36-46); Hemoglobin 12.3 g/dL (12.0-16.0); Mean Corpuscular HGB Conc 32.9 % (30-36); Mean Corpuscular Hemoglobin 27.0 PG (26-34); Mean Corpuscular Volume 81.9 fL (80-100); Platelet Count 234 X10^3/uL (150-400)
[2025-06-01 12:15] LABS: Alanine Aminotransferase 14 IU/L (<35); Albumin 4.1 g/dL (3.5-5.0); Albumin Globulin Ratio 1.7 (1.0-2.8); Alkaline Phosphatase 90 U/L (38-126); Blood Urea Nitrogen 11 mg/dL (7-17); Calcium 9.3 mg/dL (8.4-10.2); Carbon Dioxide 25 mmol/L (22-32); Chloride 105 mmol/L (98-107); Cholesterol 143 mg/dL (140-199); Estimated Glomerular Filt Rate > 60 mL/min (>60); Globulin 2.4 g/dL (1.7-4.1); Glucose 86 mg/dL (70-99); HDL Cholesterol 71 mg/dL (40-60); HEMOLYSIS < 15 (0-50); Potassium 4.5 mmol/L (3.4-5.1); Sodium 139 mmol/L (137-145); Total Protein 6.5 g/dL (6.3-8.2); Triglycerides 89 mg/dL (35-150)
[2025-06-01 12:43] LABS: TSH w/ Reflex to FT4 1.36 uIU/mL (0.47-4.68)
== END ==
PROVIDERS: PCP Registered Nurse Diabetes Educator; Referring Provider Registered Nurse Diabetes Educator; Visit Provider Registered Nurse Diabetes Educator
DX: E03.9 Hypothyroidism, unspecified (principal); I10 Essential (primary) hypertension; E78.5 Hyperlipidemia, unspecified
CPT/HCPCS: 36415; 80053; 80061; 84443; 85027